=== PATIENT | male | born 1980 | race Caucasian/White ===

== ENCOUNTER 2017-02-03 12:51 | Inpatient (IN) | payer OTHER, MEDICAID ==
[2017-02-03 14:40] LABS: Hematocrit 48 % (42-52); Mean Corpuscular HGB Conc 33 g/dl (31-36); Mean Corpuscular Hemoglobin 31 pg (27-31); Mean Corpuscular Volume 93 fL (80-94); Mean Platelet Volume 9 um3 (7.4-10.4); Red Blood Count 5.23 10^6/ul (4.0-5.4); Red Cell Distribution Width 13 % (10.5-15)
[2017-02-03] MEDS ORDERED: Haloperidol INJ IV/IM* 5 MG/ML AMP IM ONE (15:06)
[2017-02-03] MEDS ORDERED: LORazepam INJ* 2 MG/ML 1 ML VIAL IM ONE (15:07)
[2017-02-03 15:09] LABS: TSH (Thyroid Stimulating Horm) 0.46 mcIU/mL (0.34-5.60)
[2017-02-03 15:10] LABS: Urine Bacteria Absent (Absent); Urine Bilirubin Negative (Negative); Urine Glucose Negative (Negative); Urine Nitrite Negative (Negative)
[2017-02-03 15:23] LABS: ALT 17 U/L (7-52); AST 16 U/L (13-39); Albumin 4.2 g/dL (3.2-5.2); Alkaline Phosphatase 85 U/L (34-104); Anion Gap 9 mmol/L (2-11); BUN/Creatinine Ratio 10.6 (8-20); Blood Urea Nitrogen 12 mg/dL (6-24); CO2 Carbon Dioxide 24 mmol/L (22-32); Calcium 9.3 mg/dL (8.6-10.3); Chloride 102 mmol/L (101-111); Creatine Kinase 166 U/L (10-223); EGFR African American 95.5 (>60); EGFR Non-African American 74.3 (>60); Globulin 2.8 g/dL (2-4); Glucose 167 mg/dL (70-100); Potassium 4.1 mmol/L (3.5-5.0); Sodium 135 mmol/L (133-145)
[2017-02-03] MEDS ORDERED: LORazepam TAB(*) 1 MG PO ONE (15:24)
[2017-02-03] MEDS ORDERED: Haloperidol TAB* 5 MG PO ONE (15:24)
[2017-02-03] MEDS ORDERED: diPHENhydraMINE PO* 50 MG PO ONE (15:24)
[2017-02-03 15:30] LABS: Acetaminophen < 15 mcg/mL; Alcohol < 10 mg/dL (<10); Salicylate < 2.50 mg/dL (<30)
[2017-02-03 15:55] LABS: Benzodiazepine Urine Screen None Detected (None Detect)
[2017-02-03] MEDS ORDERED: traZODone TAB* 50 MG TAB PO PRN (19:18)
--- NOTE | 2017-02-03 20:02 | ED ---
Leda Frederick Matthew, scribed for Bridger Gonzalez MD on 02/03/17 at 1402 . Altered Mental Status - HPI Summary HPI Summary: A 36 y/o male presents to the ED with altered mental status. The patient was over at [facility] and arrived there on the , when he told people that he was going to committee suicide and hurt himself. However, he does not have a plan. He states that he hasn't had these thoughts before and since arriving at the hospital his mental state has improved. Currently, the patient's having difficulty sleeping. He denies hearing voices and doesn't believe people are out to get him. The patient went to [facility] on his own. He was also at the [facility] for 3 weeks. Last known drug use was in November. The patient used multiple drugs. - History Of Current Complaint Chief Complaint: EDMentalHealth Stated Complaint: MENTAL HEALTH Hx Obtained From: Patient Onset/Duration: Still Present Timing: Constant Severity Initially: Moderate Severity Currently: Mild Aggravating Factor(s): Unknown Alleviating Factor(s): Unknown Associated Signs And Symptoms: Positive: Negative Has Suicidal: Thoughts - Allergies/Home Medications Allergies/Adverse Reactions: Allergies Allergy/AdvReac Type Severity Reaction Status Date / Time No Known Allergies Allergy Verified 02/03/17 12:55 Home Medications: Home Medications Amlodipine Besylate 10 mg PO BEDTIME 02/03/17 [History Confirmed 02/03/17] Gabapentin 300 mg PO TID 02/03/17 [History Confirmed 02/03/17] Lisinopril 20 mg PO DAILY 02/03/17 [History Confirmed 02/03/17] Omeprazole 20 mg PO BID 02/03/17 [History Confirmed 02/03/17] Rivaroxaban 20 mg PO DAILY 02/03/17 [History Confirmed 02/03/17] Thiamine 100 mg PO DAILY 02/03/17 [History Confirmed 02/03/17] Trazodone HCl 150 mg PO BEDTIME PRN 02/03/17 [History Confirmed 02/03/17] Zoloft 100 mg PO DAILY 02/03/17 [History Confirmed 02/03/17] PMH/Surg Hx/FS Hx/Imm Hx Psychiatric History: Reports: Hx Depression, Hx Substance Abuse Infectious Disease History: No Infectious Disease History: Denies: Traveled Outside the [place] in Last 30 Days - Family History Known Family History: Positive: Hypertension - Father - Social History Alcohol Use: He used to drink, but states that he isn't current Hx Substance Use: Yes Hx Tobacco Use: Yes Smoking Status (MU): Current Every Day Smoker Review of Systems Constitutional: Negative Eyes: Negative ENT: Negative Cardiovascular: Negative Respiratory: Negative Gastrointestinal: Negative Genitourinary: Negative Musculoskeletal: Negative Skin: Negative Neurological: Negative Psychological: Other - SI All Other Systems Reviewed And Are Negative: Yes Physical Exam - Summary Physical Exam Summary: The patient is well-nourished in no acute distress and in no acute pain. The skin is warm and dry and skin color reflects adequate perfusion. HEENT: The head is normocephalic and atraumatic. The pupils are equal and reactive. The conjunctivae are clear and without drainage. Nares are patent and without drainage. Mouth reveals moist mucous membranes and the throat is without erythema and exudate. The external ears are intact. Neck is supple with full range of motion and non-tender. There are no carotid bruits. There is no neck vein distension. Respiratory: Chest is non-tender. Lungs are clear to auscultation and breath sounds are symmetrical and equal. Cardiovascular: Heart is regular rate and rhythm. There is no murmur or rub auscultated. There is no peripheral edema and pulses are symmetrical and equal. Abdomen: The abdomen is soft and non-tender. There are normal bowel sounds heard in all four quadrants and there is no organomegaly palpated. Musculoskeletal: There is no back pain noted. Extremities are non-tender with full range of motion. There is good capillary refill. There is no peripheral edema or calf tenderness elicited. Neurological: Patient is alert and oriented to person, place and time. The patient has symmetrical motor strength in all four extremities. Cranial nerves are grossly intact. Deep tendon reflexes are symmetrical and equal in all four extremities. Psychiatric: The patient has difficulty following command.s Triage Information Reviewed: Yes Vital Signs On Initial Exam: Initial Vitals Temp Pulse Resp BP Pulse Ox 98.4 F 122 18 157/88 96 02/03/17 12:55 02/03/17 12:55 02/03/17 12:55 02/03/17 12:55 02/03/17 12:55 Vital Signs Reviewed: Yes Diagnostics - Vital Signs Vital Signs Temp Pulse Resp BP Pulse Ox 02/03/17 12:55 98.4 F 122 18 157/88 96 - Laboratory Lab Results: Lab Results 02/03/17 02/03/17 02/03/17 Range/Units 14:25 14:25 14:25 WBC 19.0 H (3.5-10.8) 10^3/ul RBC 5.23 (4.0-5.4) 10^6/ul Hgb 16.0 (14.0-18.0) g/dl Hct 48 (42-52) % MCV 93 (80-94) fL MCH 31 (27-31) pg MCHC 33 (31-36) g/dl RDW 13 (10.5-15) % Plt Count 290 (150-450) 10^3/ul MPV 9 (7.4-10.4) um3 Neut % (Auto) 84.9 H (38-83) % Lymph % (Auto) 7.8 L (25-47) % [place] % (Auto) 6.8 (1-9) % Eos % (Auto) 0 (0-6) % Baso % (Auto) 0.5 (0-2) % Absolute Neuts (auto) 16.1 H (1.5-7.7) 10^3/ul Absolute Lymphs (auto) 1.5 (1.0-4.8) 10^3/ul Absolute Monos (auto) 1.3 H (0-0.8) 10^3/ul Absolute Eos (auto) 0 (0-0.6) 10^3/ul Absolute Basos (auto) 0.1 (0-0.2) 10^3/ul Absolute Nucleated RBC 0.01 10^3/ul Nucleated RBC % 0.1 Sodium 135 (133-145) mmol/L Potassium 4.1 (3.5-5.0) mmol/L Chloride 102 (101-111) mmol/L Carbon Dioxide 24 (22-32) mmol/L Anion Gap 9 (2-11) mmol/L BUN 12 (6-24) mg/dL Creatinine 1.13 (0.67-1.17) mg/dL Est GFR ( Amer) 95.5 (>60) Est GFR (Non-Af Amer) 74.3 (>60) BUN/Creatinine Ratio 10.6 (8-20) Glucose 167 H (70-100) mg/dL Calcium 9.3 (8.6-10.3) mg/dL Total Bilirubin 0.50 (0.2-1.0) mg/dL AST 16 (13-39) U/L ALT 17 (7-52) U/L Alkaline Phosphatase 85 (34-104) U/L Total Creatine Kinase 166 (10-223) U/L Total Protein 7.0 (6.4-8.9) g/dL Albumin 4.2 (3.2-5.2) g/dL Globulin 2.8 (2-4) g/dL Albumin/Globulin Ratio 1.5 (1-3) TSH 0.46 (0.34-5.60) mcIU/mL Urine Color Yellow Urine Appearance Clear Urine pH 5.0 (5-9) Ur Specific [place] 1.018 (1.010-1.030) Urine Protein 1+(30 mg/dl) H (Negative) Urine Ketones Negative (Negative) Urine Blood Negative (Negative) Urine Nitrate Negative (Negative) Urine Bilirubin Negative (Negative) Urine Urobilinogen Negative (Negative) Ur Leukocyte Esterase Negative (Negative) Urine WBC (Auto) Trace(0-5/hpf) (Absent) Urine RBC (Auto) Trace(0-2/hpf) (Absent) Ur Squamous Epith Cells Present H (Absent) Urine Bacteria Absent (Absent) Urine Glucose Negative (Negative) Urine Ascorbic Acid * H (Negative) Salicylates < 2.50 (<30) mg/dL Urine Opiates Screen (None Detect) Acetaminophen < 15 mcg/mL Ur Barbiturates Screen (None Detect) Ur Phencyclidine Scrn (None Detect) Ur Amphetamines Screen (None Detect) U Benzodiazepines Scrn (None Detect) Urine Cocaine Screen (None Detect) U Cannabinoids Screen (None Detect) Serum Alcohol < 10 (<10) mg/dL 02/03/17 Range/Units 14:25 WBC (3.5-10.8) 10^3/ul RBC (4.0-5.4) 10^6/ul Hgb (14.0-18.0) g/dl Hct (42-52) % MCV (80-94) fL MCH (27-31) pg MCHC (31-36) g/dl RDW (10.5-15) % Plt Count (150-450) 10^3/ul MPV (7.4-10.4) um3 Neut % (Auto) (38-83) % Lymph % (Auto) (25-47) % [place] % (Auto) (1-9) % Eos % (Auto) (0-6) % Baso % (Auto) (0-2) % Absolute Neuts (auto) (1.5-7.7) 10^3/ul Absolute Lymphs (auto) (1.0-4.8) 10^3/ul Absolute Monos (auto) (0-0.8) 10^3/ul Absolute Eos (auto) (0-0.6) 10^3/ul Absolute Basos (auto) (0-0.2) 10^3/ul Absolute Nucleated RBC 10^3/ul Nucleated RBC % Sodium (133-145) mmol/L Potassium (3.5-5.0) mmol/L Chloride (101-111) mmol/L Carbon Dioxide (22-32) mmol/L Anion Gap (2-11) mmol/L BUN (6-24) mg/dL Creatinine (0.67-1.17) mg/dL Est GFR ( Amer) (>60) Est GFR (Non-Af Amer) (>60) BUN/Creatinine Ratio (8-20) Glucose (70-100) mg/dL Calcium (8.6-10.3) mg/dL Total Bilirubin (0.2-1.0) mg/dL AST (13-39) U/L ALT (7-52) U/L Alkaline Phosphatase (34-104) U/L Total Creatine Kinase (10-223) U/L Total Protein (6.4-8.9) g/dL Albumin (3.2-5.2) g/dL Globulin (2-4) g/dL Albumin/Globulin Ratio (1-3) TSH (0.34-5.60) mcIU/mL Urine Color Urine Appearance Urine pH (5-9) Ur Specific [place] (1.010-1.030) Urine Protein (Negative) Urine Ketones (Negative) Urine Blood (Negative) Urine Nitrate (Negative) Urine Bilirubin (Negative) Urine Urobilinogen (Negative) Ur Leukocyte Esterase (Negative) Urine WBC (Auto) (Absent) Urine RBC (Auto) (Absent) Ur Squamous Epith Cells (Absent) Urine Bacteria (Absent) Urine Glucose (Negative) Urine Ascorbic Acid (Negative) Salicylates (<30) mg/dL Urine Opiates Screen None detected (None Detect) Acetaminophen mcg/mL Ur Barbiturates Screen None detected (None Detect) Ur Phencyclidine Scrn None detected (None Detect) Ur Amphetamines Screen None detected (None Detect) U Benzodiazepines Scrn None detected (None Detect) Urine Cocaine Screen None detected (None Detect) U Cannabinoids Screen None detected (None Detect) Serum Alcohol (<10) mg/dL Result Diagrams: 02/03/17 14:25 02/03/17 14:25 Lab Statement: Any lab studies that have been ordered have been reviewed, and results considered in the medical decision making process. - EKG 14:11 Cardiac Rate: Tachycardia - 110 bpm EKG Rhythm: Sinus Tachycardia ST Segment: Non-Specific EKG Interpretation: Normal [place]; No STEMI Altered Mental Statu Course/Dx - Course Course Of Treatment: pt was recently transfered to [facility] from [facility] in [place], [place]. pt threatened to kill himself at [facility]. [facility] refused to accept pt back. there was suspicion of huffing or substance abuse. Assessment/Plan: The patient is being involuntary admitted to the MHU. - Diagnoses Differential Diagnosis/HQI/PQRI: Other - substance abuse, psychosis Discharge Diagnoses: Mood Disorder NOS - Provider Notifications Instructed by Provider To: Other - Cleared for MHE at 16:03 Discharge - Discharge Plan Condition: Stable Disposition: ADMITTED TO [facility] Referrals: Non Staff,Doctor [Primary Care Provider] - The documentation as recorded by the Leda barahona Matthew accurately reflects the service I personally performed and the decisions made by , Bridger Gonzalez MD.
[2017-02-03] MEDS: amLODIPine TAB* 5 MG PO SCH ×2 (21:32→22:18)
[2017-02-03] MEDS: Gabapentin CAP(*) 300 MG PO SCH (21:32)
[2017-02-03] MEDS: Omeprazole CAP* 20 MG PO SCH (22:50)
[2017-02-04] MEDS ORDERED: Mouth Piece, Nicotine* 1 EACH CARTRIDGE ONE (02:19)
[2017-02-04] MEDS: Nicotine Inhaler* 10 MG AMP INH PRN ×2 (02:19→20:16)
[2017-02-04] MEDS ORDERED: Sertraline* 100 MG TAB PO SCH (09:00)
[2017-02-04] MEDS ORDERED: Lisinopril TAB* 10 MG PO SCH (09:00)
[2017-02-04] MEDS: Thiamine TAB* 100 MG TAB PO SCH (10:29)
[2017-02-04] MEDS: Omeprazole CAP* 20 MG PO SCH ×2 (10:29→20:15)
[2017-02-04] MEDS: Gabapentin CAP(*) 300 MG PO SCH (10:30)
[2017-02-04] MEDS: Nicotine PATCH 21 MG/24 HR* PATCH TRANSDERM SCH (13:46)
--- NOTE | 2017-02-04 15:26 | CONS ---
CONSULTATION REPORT: DATE OF CONSULT: 02/04/17 PRIMARY CARE PROVIDER: Unknown. ATTENDING PHYSICIAN WHILE IN THE HOSPITAL: Emelia Chou MD (report dictated by Stevenson Salomon NP). REQUESTING PHYSICIAN FOR CONSULT: Dr. Coker. REASON FOR MEDICAL CONSULTATION: 1. Evaluation of altered mental status. 2. Medical management of hypertension. HISTORY OF PRESENT ILLNESS: Mr. Snell a 36-year-old male patient, who was recently at [facility] for, the patient states that he has a history of polysubstance abuse. He was then transferred from [facility] to the [facility]. Yesterday at [facility] it was noted that he was acting bizarre. He was confused. He was acting suicidal. There was concern that maybe he had inhaled something or taking something unbeknownst to the staff and because he was making gestures of killing himself, he was sent to the ED for evaluation. He was evaluated in the ED. He was deemed medically stable and sent to the psychiatric unit here for psychiatric evaluation and stabilization. Today, it was noted that the patient appeared to be drowsy, lethargic and the hospitalist service was asked to evaluate in consult. In evaluating the patient, he is drowsy, but does awaken to his name. He answers questions and he is falling asleep at times during my interview, but he states he has not had any headaches. There has been no recent fever or chills. He denies having any chest pain. He denies having any shortness of breath. He denies having any nausea, vomiting or any diarrhea. He states he has not had any headaches or any neck pain, and when asked if he takes Xarelto, a blood thinner or any medications for blood pressure such as Norvasc and lisinopril, to his knowledge he does not take those medications. The patient states that he has not again had any recent URI symptoms and he denies any abdominal discomfort, but because of the drowsiness, the hospitalist service was asked to evaluate in consult. PAST MEDICAL HISTORY: Significant for; 1. Polysubstance abuse. 2. Depression. 3. Hypertension. PAST SURGICAL HISTORY: Denied. HOME MEDICATIONS: There was a list that was obtained yesterday in the ED, which did include: 1. Xarelto. 2. Amlodipine. 3. Zoloft. 4. Thiamine. 5. Folic acid. 6. Norvasc. 7. Lisinopril. However, confirming these medications with the [facility] Unit, the list that I got from [facility] was: 1. Clonidine 0.1 mg p.o. b.i.d. 2. Antabuse 500 mg daily. 3. Lexapro 20 mg at bedtime. 4. Folic acid 1 tablet p.o. daily. 5. Tenex 2 mg daily at noon. 6. Nicotine patch 1 patch daily. 7. Simvastatin 10 mg at bedtime. 8. Thiamine 1 tablet p.o. b.i.d. This was confirmed with the [facility] discharge list as well. ALLERGIES: His allergies to medications include no known drug allergies. FAMILY HISTORY: Reviewed and essentially noncontributory. SOCIAL HISTORY: He does smoke cigarettes. He does drink alcohol at times and he has a history of cocaine and heroin use, he states that he has not used since October. He does not have a surrogate decision maker. REVIEW OF SYSTEMS: There is no documented fever. He denied having any significant weight change. There was no double vision. He denies having any ear discharge. There was no rhinorrhea, no sore throat, no thyroid enlargement. He denied having any chest pain. There was no orthopnea. There was no nocturnal dyspnea. He denies having any abdominal discomfort. There was no nausea, no vomiting. There was no dysuria, no frequency. He denied having any loss of consciousness. No pruritus. No skin ulcerations. Review of 14 systems completed, all others negative. PHYSICAL EXAM: Reveals vital signs of blood pressure 92/58 with a pulse of 110 , respirations 16, O2 sat 97%, and temperature 98.9. General: At this time, Mr. Snell is a 36-year-old male patient. He is sitting in the psychiatric bed. He does not appear to be in any acute distress. HEENT: Head is atraumatic and normocephalic. Eyes: EOMs are intact. Sclerae are anicteric and not pale. Neck: Supple. Throat: Oral mucosa appears to be moist. No oropharyngeal erythema. Heart: Sounds S1, S2. Regular rate and rhythm. No murmurs, rubs or gallops. Lungs: Clear to auscultation. No wheezes, rales or rhonchi. Abdomen: Soft, flat, nontender. Bowel sounds are present. Extremities: Pulses are 2+ throughout. He is able to move all 4 extremities with 5/5 strength. Neurologically, he is awake. He is drowsy, but he answers questions appropriately. He knows the place, time, and year, and he knows his name. His tongue is midline. His maintenance analyst were equal. His speech was clear. He had no gross obvious focal deficits. His skin was intact. DIAGNOSTIC STUDIES/LAB DATA: Labs from yesterday reveal WBC of 19.0, RBC of 5.23, hemoglobin of 16.0, hematocrit of 48, platelet count 290. The sodium was 135, potassium 4.1, chloride 102, bicarb of 24, BUN 12, creatinine 1.13, glucose 167, total bili 0.5, AST 16, ALT 17, alk phos 85, albumin was 4.2. Urine was obtained, it was negative. Toxicology obtained and negative. Old medical records were reviewed. ASSESSMENT AND PLAN: Mr. Snell a 36-year-old male patient, coming into the psychiatric unit for suicidal ideation. Hospitalist service was asked to evaluate for management of blood pressure, in addition to this a management of altered mental status. My recommendations at this point are; 1. Suicidal ideation and depression: I will defer the management to Dr. Coker. I did stop the Zoloft he was on and I put him back on the Lexapro that he normally takes. 2. Hypertension: He is actually running on the low side here and the patient denies having a history of hypertension. I am going to hold the antihypertensives for now and we will monitor him and we can reinstate them if needed and if his blood pressure is running greater than 90s. The patient states that he always has a low blood pressure, so we will monitor. 3. Altered mental status: I suspect that this is probably from the fact that he got 50 of Benadryl, Haldol, and Ativan in the ED last night. In addition to this, he also got trazodone last night and gabapentin, which was on the original home med list, but when I called [facility], he has not been taking this medication, this medication could certainly cause him to be altered and drowsy particularly this morning, so I think we just need to let things clear and we will monitor him. I will repeat his labs and follow. 4. Leukocytosis: Again, this may be a leukemoid reaction or stress responses, but no obvious source of infection on exam or in talking with the patient. I will repeat his labs today. We will send off cultures. His urine was negative and we will just continue to monitor. Should he spike a fever, then we will check. 5. Tachycardia: Again, heart rate is right around 78 currently. We will just continue to monitor him. 6. DVT prophylaxis: Defer to primary. 7. Fluids, electrolytes, and nutrition: He can have a regular diet. 8. Code status: He is full code. TIME SPENT: Time spent on the consult, 60 minutes; greater than half the time was spent [id number] with the patient obtaining my history and physical, other half the time spent going over the plan of care with the patient and implementing plan of care. I did discuss the plan of care with my attending, Dr. Chou; she is in agreement. STEVENSON SALOMON NP CC: Dr. Coker [id number]/CPS #: [id number] MTDD
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
[2017-02-04] MEDS ORDERED: Rivaroxaban TAB(*) 20 MG TAB PO SCH (17:00)
[2017-02-04] MEDS: Atorvastatin* 10 MG TAB PO SCH (18:41)
[2017-02-04] MEDS: Citalopram TAB* 40 MG PO SCH (20:16)
[2017-02-04] MEDS: Nicotine Patch Removal NOTE FOLLOW UP SCH (20:27)
[2017-02-04 21:51] LABS: Hematocrit 46 % (42-52); Hemoglobin 15.3 g/dl (14.0-18.0); Mean Corpuscular HGB Conc 33 g/dl (31-36); Mean Corpuscular Hemoglobin 31 pg (27-31); Mean Corpuscular Volume 93 fL (80-94); Mean Platelet Volume 9 um3 (7.4-10.4); Red Blood Count 4.96 10^6/ul (4.0-5.4); Red Cell Distribution Width 14 % (10.5-15); White Blood Count 17.5 10^3/ul (3.5-10.8)
[2017-02-04 21:52] LABS: Comments Flag Yes
[2017-02-04 22:04] LABS: BUN/Creatinine Ratio 16.8 (8-20); Calcium 9.2 mg/dL (8.6-10.3); Potassium 4.8 mmol/L (3.5-5.0)
[2017-02-05] MEDS ORDERED: Thiamine TAB* 100 MG TAB PO SCH (09:00)
[2017-02-05] MEDS: Thiamine TAB* 100 MG TAB PO SCH (09:59)
[2017-02-05] MEDS: Omeprazole CAP* 20 MG PO SCH ×2 (09:59→21:27)
[2017-02-05] MEDS: Disulfiram TAB* 250 MG PO SCH (10:00)
[2017-02-05] MEDS: Nicotine PATCH 21 MG/24 HR* PATCH TRANSDERM SCH (10:00)
[2017-02-05] MEDS: Folic Acid TAB* 1 MG PO SCH (10:00)
--- NOTE | 2017-02-05 13:30 | PN ---
Subjective Date of Service: 02/05/17 Interval History: Pt examined today at the bedside. States that he is feeling better. States he slept well last night. Denies chest pain. Denies sob. Denies lightheadedness. ROS-Denies fever, denies chills, denies chest pain, denies sob, denies lightheadedness, denies loc, denies abdominal pain, denies nausea, denies vomiting, review of 11 systems completed all others negative, Objective Active Medications: Atorvastatin Calcium (Lipitor*) 5 mg PO 1700 [facility] Last Admin: 02/04/17 18:41 Dose: 5 mg Citalopram Hydrobromide (Celexa Tab*) 40 mg PO BEDTIME [facility] Last Admin: 02/04/17 20:16 Dose: 40 mg Disulfiram (Antabuse Tab*) 500 mg PO DAILY [facility] Last Admin: 02/05/17 10:00 Dose: 500 mg Folic Acid (Folvite Tab*) 1 mg PO DAILY [facility] Last Admin: 02/05/17 10:00 Dose: 1 mg Nicotine (Nicotine Inhaler*) 10 mg INH Q2H PRN PRN Reason: CRAVING Last Admin: 02/04/17 20:16 Dose: 10 mg Nicotine (Nicotine Patch 21 Mg/24 Hr*) 1 patch TRANSDERM DAILY@0800 [facility] Last Admin: 02/05/17 10:00 Dose: 1 patch Omeprazole (Prilosec Cap*) 20 mg PO BID [facility] Last Admin: 02/05/17 09:59 Dose: 20 mg Pharmacy Profile Note (Nicotine Patch Removal Note*) 1 note FOLLOW UP 2099 [facility] Last Admin: 02/04/17 20:27 Dose: Not Given Thiamine HCl (Vitamin B-1 Tab*) 100 mg PO DAILY [facility] Last Admin: 02/05/17 09:59 Dose: 100 mg Vital Signs 02/04/17 02/04/17 02/04/17 13:27 16:53 21:17 Temperature Pulse Rate 90 83 85 Respiratory 16 18 18 Rate Blood Pressure 88/61 83/64 92/68 (mmHg) O2 Sat by Pulse 99 Oximetry 02/05/17 08:01 Temperature 98.6 F Pulse Rate 68 Respiratory 16 Rate Blood Pressure 113/58 (mmHg) O2 Sat by Pulse 97 Oximetry Oxygen Devices in Use Now: None Appearance: NAD sitting on edge of bed Eyes: No Scleral Icterus, PERRLA Ears/Nose/Mouth/Throat: NL Teeth, Lips, Gums Neck: NL Appearance and Movements; NL JVP Respiratory: Symmetrical Chest Expansion and Respiratory Effort, Clear to Auscultation Cardiovascular: NL Sounds; No Murmurs; No JVD Skin: No Rash or Ulcers Neurological: Alert and Oriented x 3 Result Diagrams: 02/04/17 21:35 02/04/17 21:36 Additional Lab and Data: Lab Results 02/03/17 02/03/17 02/03/17 Range/Units 14:25 14:25 14:25 WBC 19.0 H (3.5-10.8) 10^3/ul RBC 5.23 (4.0-5.4) 10^6/ul Hgb 16.0 (14.0-18.0) g/dl Hct 48 (42-52) % MCV 93 (80-94) fL MCH 31 (27-31) pg MCHC 33 (31-36) g/dl RDW 13 (10.5-15) % Plt Count 290 (150-450) 10^3/ul MPV 9 (7.4-10.4) um3 Neut % (Auto) 84.9 H (38-83) % Lymph % (Auto) 7.8 L (25-47) % Upton % (Auto) 6.8 (1-9) % Eos % (Auto) 0 (0-6) % Baso % (Auto) 0.5 (0-2) % Absolute Neuts (auto) 16.1 H (1.5-7.7) 10^3/ul Absolute Lymphs (auto) 1.5 (1.0-4.8) 10^3/ul Absolute Monos (auto) 1.3 H (0-0.8) 10^3/ul Absolute Eos (auto) 0 (0-0.6) 10^3/ul Absolute Basos (auto) 0.1 (0-0.2) 10^3/ul Absolute Nucleated RBC 0.01 10^3/ul Nucleated RBC % 0.1 Sodium 135 (133-145) mmol/L Potassium 4.1 (3.5-5.0) mmol/L Chloride 102 (101-111) mmol/L Carbon Dioxide 24 (22-32) mmol/L Anion Gap 9 (2-11) mmol/L BUN 12 (6-24) mg/dL Creatinine 1.13 (0.67-1.17) mg/dL Est GFR ( Amer) 95.5 (>60) Est GFR (Non-Af Amer) 74.3 (>60) BUN/Creatinine Ratio 10.6 (8-20) Glucose 167 H (70-100) mg/dL Calcium 9.3 (8.6-10.3) mg/dL Total Bilirubin 0.50 (0.2-1.0) mg/dL AST 16 (13-39) U/L ALT 17 (7-52) U/L Alkaline Phosphatase 85 (34-104) U/L Total Creatine Kinase 166 (10-223) U/L Total Protein 7.0 (6.4-8.9) g/dL Albumin 4.2 (3.2-5.2) g/dL Globulin 2.8 (2-4) g/dL Albumin/Globulin Ratio 1.5 (1-3) TSH 0.46 (0.34-5.60) mcIU/mL Urine Color Yellow Urine Appearance Clear Urine pH 5.0 (5-9) Ur Specific Sherrill 1.018 (1.010-1.030) Urine Protein 1+(30 mg/dl) H (Negative) Urine Ketones Negative (Negative) Urine Blood Negative (Negative) Urine Nitrate Negative (Negative) Urine Bilirubin Negative (Negative) Urine Urobilinogen Negative (Negative) Ur Leukocyte Esterase Negative (Negative) Urine WBC (Auto) Trace(0-5/hpf) (Absent) Urine RBC (Auto) Trace(0-2/hpf) (Absent) Ur Squamous Epith Cells Present H (Absent) Urine Bacteria Absent (Absent) Urine Glucose Negative (Negative) Urine Ascorbic Acid * H (Negative) Salicylates < 2.50 (<30) mg/dL Urine Opiates Screen (None Detect) Acetaminophen < 15 mcg/mL Ur Barbiturates Screen (None Detect) Ur Phencyclidine Scrn (None Detect) Ur Amphetamines Screen (None Detect) U Benzodiazepines Scrn (None Detect) Urine Cocaine Screen (None Detect) U Cannabinoids Screen (None Detect) Serum Alcohol < 10 (<10) mg/dL 02/03/17 Range/Units 14:25 WBC (3.5-10.8) 10^3/ul RBC (4.0-5.4) 10^6/ul Hgb (14.0-18.0) g/dl Hct (42-52) % MCV (80-94) fL MCH (27-31) pg MCHC (31-36) g/dl RDW (10.5-15) % Plt Count (150-450) 10^3/ul MPV (7.4-10.4) um3 Neut % (Auto) (38-83) % Lymph % (Auto) (25-47) % Upton % (Auto) (1-9) % Eos % (Auto) (0-6) % Baso % (Auto) (0-2) % Absolute Neuts (auto) (1.5-7.7) 10^3/ul Absolute Lymphs (auto) (1.0-4.8) 10^3/ul Absolute Monos (auto) (0-0.8) 10^3/ul Absolute Eos (auto) (0-0.6) 10^3/ul Absolute Basos (auto) (0-0.2) 10^3/ul Absolute Nucleated RBC 10^3/ul Nucleated RBC % Sodium (133-145) mmol/L Potassium (3.5-5.0) mmol/L Chloride (101-111) mmol/L Carbon Dioxide (22-32) mmol/L Anion Gap (2-11) mmol/L BUN (6-24) mg/dL Creatinine (0.67-1.17) mg/dL Est GFR ( Amer) (>60) Est GFR (Non-Af Amer) (>60) BUN/Creatinine Ratio (8-20) Glucose (70-100) mg/dL Calcium (8.6-10.3) mg/dL Total Bilirubin (0.2-1.0) mg/dL AST (13-39) U/L ALT (7-52) U/L Alkaline Phosphatase (34-104) U/L Total Creatine Kinase (10-223) U/L Total Protein (6.4-8.9) g/dL Albumin (3.2-5.2) g/dL Globulin (2-4) g/dL Albumin/Globulin Ratio (1-3) TSH (0.34-5.60) mcIU/mL Urine Color Urine Appearance Urine pH (5-9) Ur Specific Sherrill (1.010-1.030) Urine Protein (Negative) Urine Ketones (Negative) Urine Blood (Negative) Urine Nitrate (Negative) Urine Bilirubin (Negative) Urine Urobilinogen (Negative) Ur Leukocyte Esterase (Negative) Urine WBC (Auto) (Absent) Urine RBC (Auto) (Absent) Ur Squamous Epith Cells (Absent) Urine Bacteria (Absent) Urine Glucose (Negative) Urine Ascorbic Acid (Negative) Salicylates (<30) mg/dL Urine Opiates Screen None detected (None Detect) Acetaminophen mcg/mL Ur Barbiturates Screen None detected (None Detect) Ur Phencyclidine Scrn None detected (None Detect) Ur Amphetamines Screen None detected (None Detect) U Benzodiazepines Scrn None detected (None Detect) Urine Cocaine Screen None detected (None Detect) U Cannabinoids Screen None detected (None Detect) Serum Alcohol (<10) mg/dL Assess/Plan/Problems-Billing Assessment: 36 y/o male patient with hx of polysubstance abuse presenting to [facility] for SI - Patient Problems (1) Altered mental status Current Visit: Yes Status: Acute Priority: High Comment: Suspect r/t poly pharmacy and trazadone, pt much more awake and later today, (2) Suicidal ideation Current Visit: Yes Status: Acute Priority: High Comment: Per psych (3) Depression Current Visit: Yes Status: Acute Priority: High Comment: Per psych (4) HTN (hypertension) Current Visit: Yes Status: Acute Priority: High Comment: Pt states he normal has low BP, pt was given norvasc yesterday supsect low bp r/t to this, no hx of htn per patient, will follow bp acceptable today Status and Disposition: Per psych medicine will sign off at this point as patient's mentation has improved and bp stabilized, call [phone] for further concerns thank you for the consult
[2017-02-05] MEDS: Atorvastatin* 10 MG TAB PO SCH (16:28)
[2017-02-05] MEDS: Citalopram TAB* 40 MG PO SCH (21:27)
[2017-02-05] MEDS: Nicotine Patch Removal NOTE FOLLOW UP SCH (21:27)
[2017-02-05] MEDS ORDERED: chlorproMAZINE TAB* 50 MG ONE (23:03)
[2017-02-05] MEDS ORDERED: diPHENhydraMINE PO* 50 MG ONE (23:03)
[2017-02-06] MEDS: Nicotine Inhaler* 10 MG AMP INH PRN ×2 (02:38→09:34)
[2017-02-06] MEDS: Nicotine PATCH 21 MG/24 HR* PATCH TRANSDERM SCH (09:33)
[2017-02-06] MEDS: Folic Acid TAB* 1 MG PO SCH (09:35)
[2017-02-06] MEDS: Disulfiram TAB* 250 MG PO SCH (09:35)
[2017-02-06] MEDS: Omeprazole CAP* 20 MG PO SCH ×2 (09:35→20:46)
[2017-02-06] MEDS: Thiamine TAB* 100 MG TAB PO SCH (09:35)
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
[2017-02-06] MEDS ORDERED: risperiDONE TAB* 1 MG PO ONE (14:10)
[2017-02-06] MEDS: Atorvastatin* 10 MG TAB PO SCH (17:08)
[2017-02-06] MEDS: Nicotine Patch Removal NOTE FOLLOW UP SCH (20:46)
[2017-02-06] MEDS: risperiDONE TAB* 1 MG PO SCH (20:46)
[2017-02-06] MEDS: Citalopram TAB* 40 MG PO SCH (20:46)
[2017-02-07] MEDS: Thiamine TAB* 100 MG TAB PO SCH (10:07)
[2017-02-07] MEDS: Disulfiram TAB* 250 MG PO SCH (10:07)
[2017-02-07] MEDS: Omeprazole CAP* 20 MG PO SCH ×2 (10:08→21:38)
[2017-02-07] MEDS: Folic Acid TAB* 1 MG PO SCH (10:08)
[2017-02-07] MEDS: Nicotine PATCH 21 MG/24 HR* PATCH TRANSDERM SCH (10:08)
[2017-02-07] MEDS: risperiDONE TAB* 1 MG PO SCH (10:08)
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
--- NOTE | 2017-02-07 11:22 | PN ---
MHU: Group Therapy Note - Service Type Service Type: [id number] Group Psychotherapy - Cognitive Behavioral Group Therapy ( CBT):Patient presented in CBT programming as disorganized and disruptive in discussion and needed repeated redirection to attend to presented materials.
[2017-02-07] MEDS: Nicotine Inhaler* 10 MG AMP INH PRN (15:36)
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
[2017-02-07] MEDS: Atorvastatin* 10 MG TAB PO SCH (17:43)
[2017-02-07] MEDS: Citalopram TAB* 40 MG PO SCH (21:38)
[2017-02-07] MEDS: risperiDONE TAB* 3 MG PO SCH (21:38)
[2017-02-07] MEDS: Nicotine Patch Removal NOTE FOLLOW UP SCH (21:39)
[2017-02-08] MEDS: Nicotine PATCH 21 MG/24 HR* PATCH TRANSDERM SCH (08:42)
[2017-02-08] MEDS: Omeprazole CAP* 20 MG PO SCH ×2 (08:43→20:22)
[2017-02-08] MEDS: Disulfiram TAB* 250 MG PO SCH (08:43)
[2017-02-08] MEDS: Thiamine TAB* 100 MG TAB PO SCH (08:43)
[2017-02-08] MEDS: Folic Acid TAB* 1 MG PO SCH (08:43)
[2017-02-08] MEDS: Nicotine Inhaler* 10 MG AMP INH PRN ×4 (08:46→23:24)
--- NOTE | 2017-02-08 11:58 | PN ---
MHU: Group Therapy Note - Service Type Service Type: [id number] Group Psychotherapy - Cognitive Behavioral Group Therapy ( CBT):Patient was attentive and participatory in CBT programming this morning, and remained in good behavioral control. Patient expressed positive insights regarding relevant treatment interventions and goals.
--- NOTE | 2017-02-08 14:57 | PN ---
Subjective - Subjective Service Type: [id number] Hosp care 15 min low complexity Subjective: Brian continues to present with a somewhat odd and slightly disjointed thought process. He denies any dangerous intent or plan. He denies any hallucinations. He has no recall of why he was prescribed Xarelto, nor from where he last got the med. He says he gets his prescriptions from whereever he is at the time, and cannot recall clearly where he has been. He says he should not have said he was suicidal. He says he feels embarassed at what he was doing at [facility], walking into patricio, taking off his shirt and beating his chest. He is unable to explain why he did these things. He says his main issue is depression, not psychosis. Objective - Appearance Appearance: Well Developed/Nourished Dysmorphic Features: No Hygiene: Normal Grooming: Fairly Well Kept - Behavior Psychomotor Activities: Normal Exhibits Abnormal Movement: No - Attitude and Relatedness Attitude and Relatedness: Cooperative Eye Contact: Fair - Speech Quality: Unpressured Latencies: Normal Quantity: Copious - Mood Patient's Decription of Mood: "Good" - Affect Observed Affect: Fair Affect Consistent with: Euthymia - Thought Process Patient's Thought Process: Disorganized - mildly Thought Content: No Passive Wish, No Suicidal Planning, No Homicidal Ideation, No Paranoid Ideation - "Just anxious" - Impulse Control Impulse Control: Intact - Insight and Judgement Insight and Judgement: Impaired - Group Participation Particating in Group Activities: Yes - Medication Management Medication Management Adherence: Yes Assessment - Assessment Merits Inpatient Hospitalization: For Immediate Safety, For Stabilization, To Initiate Treatment, For Ongoing Evaluation, For Discharge Planning, Pending Safe DC Plan Inpatient DSM-IV Dx: Mood disorder, not otherwise specified. Psychotic disorder not otherwise specified. Alcohol, cocaine, and opioid use disorders. Rule out medication adverse effect. Rule out cognitive disorder NOS Clinical Impression: Brian is a 36 year-old man admitted to this unit following SI and odd behavior reported and observed at [facility]. He remains mildly disorganized here, but with some clearing of his thought process. He would like to return to [facility] for continued care for his substance use disorder. Plan - Plan Treatment Plan: Name: BRIAN HUBBARD Birthdate: 1980 [id number] Continue current meds. Gather collateral. Clarify indication for Xarelto. Monitor MS and safety. Medications: Current Medications Atorvastatin Calcium (Lipitor*) 5 mg PO 1700 [facility] Last Admin: 02/07/17 17:43 Dose: 5 mg Citalopram Hydrobromide (Celexa Tab*) 40 mg PO BEDTIME [facility] Last Admin: 02/07/17 21:38 Dose: 40 mg Disulfiram (Antabuse Tab*) 500 mg PO DAILY [facility] Last Admin: 02/08/17 08:43 Dose: 500 mg Folic Acid (Folvite Tab*) 1 mg PO DAILY [facility] Last Admin: 02/08/17 08:43 Dose: 1 mg Nicotine (Nicotine Inhaler*) 10 mg INH Q2H PRN PRN Reason: CRAVING Last Admin: 02/08/17 08:46 Dose: 10 mg Nicotine (Nicotine Patch 21 Mg/24 Hr*) 1 patch TRANSDERM DAILY@0800 [facility] Last Admin: 02/08/17 08:42 Dose: 1 patch Omeprazole (Prilosec Cap*) 20 mg PO BID [facility] Last Admin: 02/08/17 08:43 Dose: 20 mg Pharmacy Profile Note (Nicotine Patch Removal Note*) 1 note FOLLOW UP 2100 [facility] Last Admin: 02/07/17 21:39 Dose: 1 note Risperidone (Risperdal*) 3 mg PO BEDTIME [facility] Last Admin: 02/07/17 21:38 Dose: 3 mg Thiamine HCl (Vitamin B-1 Tab*) 100 mg PO DAILY [facility] Last Admin: 02/08/17 08:43 Dose: 100 mg - Discharge Plan Discharge Plan: Drug/Alcohol Rehab
[2017-02-08] MEDS: Atorvastatin* 10 MG TAB PO SCH (17:55)
[2017-02-08] MEDS: risperiDONE TAB* 3 MG PO SCH (20:21)
[2017-02-08] MEDS: Citalopram TAB* 40 MG PO SCH (20:22)
[2017-02-08] MEDS: Nicotine Patch Removal NOTE FOLLOW UP SCH (20:31)
[2017-02-09] MEDS: Nicotine PATCH 21 MG/24 HR* PATCH TRANSDERM SCH (09:04)
[2017-02-09] MEDS: Thiamine TAB* 100 MG TAB PO SCH (09:05)
[2017-02-09] MEDS: Omeprazole CAP* 20 MG PO SCH ×2 (09:05→20:14)
[2017-02-09] MEDS: Disulfiram TAB* 250 MG PO SCH (09:05)
[2017-02-09] MEDS: Folic Acid TAB* 1 MG PO SCH (09:06)
[2017-02-09] MEDS: Nicotine Inhaler* 10 MG AMP INH PRN ×3 (09:07→20:13)
--- NOTE | 2017-02-09 14:30 | PN ---
Subjective Date of Service: 02/09/17 Interval History: Consultation for c/o chest pain. Mr. Snell was seen in consultation for c/o chest pain. Per the patient, this morning he was distressed and had sudden onset of chest pain in the epigastric region of his chest. This happened "for a few minutes" and then he was concerned about his nicotine patch, as it is a larger dose than he is used to. He removed the patch and his chest pain went away. He denies any further issues. He denies diaphoresis, SOB, back pain, jaw pain, arm pain, shoulder, pain, nausea/vomiting. He is notably tachycardic, but he states that "my heart rate goes up sometimes." He is observed drinking coffee, which he states he "drinks a lot of." He also attributes his fast heart rate to his anxiety. We discussed decreasing his coffee intake in order to help lower his heart rate. Patient requested a 14 mg patch, which is what he previously used. EKG: Sinus tachycardia Family History: Unchanged from Admission Social History: Unchanged from Admission Past Medical History: Unchanged from Admission Objective Active Medications: Atorvastatin Calcium (Lipitor*) 5 mg PO 1700 [facility] Last Admin: 02/08/17 17:55 Dose: 5 mg Citalopram Hydrobromide (Celexa Tab*) 40 mg PO BEDTIME [facility] Last Admin: 02/08/17 20:22 Dose: 40 mg Disulfiram (Antabuse Tab*) 500 mg PO DAILY [facility] Last Admin: 02/09/17 09:05 Dose: 500 mg Folic Acid (Folvite Tab*) 1 mg PO DAILY [facility] Last Admin: 02/09/17 09:06 Dose: 1 mg Nicotine (Nicotine Inhaler*) 10 mg INH Q2H PRN PRN Reason: CRAVING Last Admin: 02/09/17 13:10 Dose: 10 mg Omeprazole (Prilosec Cap*) 20 mg PO BID [facility] Last Admin: 02/09/17 09:05 Dose: 20 mg Pharmacy Profile Note (Nicotine Patch Removal Note*) 1 note FOLLOW UP 2100 [facility] Last Admin: 02/08/17 20:31 Dose: 1 note Risperidone (Risperdal*) 3 mg PO BEDTIME [facility] Last Admin: 02/08/17 20:21 Dose: 3 mg Thiamine HCl (Vitamin B-1 Tab*) 100 mg PO DAILY [facility] Last Admin: 02/09/17 09:05 Dose: 100 mg Vital Signs 02/09/17 02/09/17 07:48 09:29 Pulse Rate 136 140 Blood Pressure 138/89 161/78 (mmHg) O2 Sat by Pulse 97 98 Oximetry Oxygen Devices in Use Now: None Appearance: Young male, ambulating in dining area, in NAD Eyes: PERRLA Ears/Nose/Mouth/Throat: Clear Oropharnyx, Mucous Membranes Moist Neck: NL Appearance and Movements; NL JVP Respiratory: Symmetrical Chest Expansion and Respiratory Effort, Clear to Auscultation Cardiovascular: NL Sounds; No Murmurs; No JVD, RRR - tachycardic, apical pulse 102 Abdominal: NL Sounds; No Tenderness; No Distention Extremities: No Edema Skin: No Rash or Ulcers Neurological: - - Alert, answers appropriately. Poor historian Nutrition: Taking PO's Result Diagrams: 02/04/17 21:35 02/04/17 21:36 Additional Lab and Data: Lab Results 02/03/17 02/03/17 02/03/17 Range/Units 14:25 14:25 14:25 WBC 19.0 H (3.5-10.8) 10^3/ul RBC 5.23 (4.0-5.4) 10^6/ul Hgb 16.0 (14.0-18.0) g/dl Hct 48 (42-52) % MCV 93 (80-94) fL MCH 31 (27-31) pg MCHC 33 (31-36) g/dl RDW 13 (10.5-15) % Plt Count 290 (150-450) 10^3/ul MPV 9 (7.4-10.4) um3 Neut % (Auto) 84.9 H (38-83) % Lymph % (Auto) 7.8 L (25-47) % [place] % (Auto) 6.8 (1-9) % Eos % (Auto) 0 (0-6) % Baso % (Auto) 0.5 (0-2) % Absolute Neuts (auto) 16.1 H (1.5-7.7) 10^3/ul Absolute Lymphs (auto) 1.5 (1.0-4.8) 10^3/ul Absolute Monos (auto) 1.3 H (0-0.8) 10^3/ul Absolute Eos (auto) 0 (0-0.6) 10^3/ul Absolute Basos (auto) 0.1 (0-0.2) 10^3/ul Absolute Nucleated RBC 0.01 10^3/ul Nucleated RBC % 0.1 Sodium 135 (133-145) mmol/L Potassium 4.1 (3.5-5.0) mmol/L Chloride 102 (101-111) mmol/L Carbon Dioxide 24 (22-32) mmol/L Anion Gap 9 (2-11) mmol/L BUN 12 (6-24) mg/dL Creatinine 1.13 (0.67-1.17) mg/dL Est GFR ( Amer) 95.5 (>60) Est GFR (Non-Af Amer) 74.3 (>60) BUN/Creatinine Ratio 10.6 (8-20) Glucose 167 H (70-100) mg/dL Calcium 9.3 (8.6-10.3) mg/dL Total Bilirubin 0.50 (0.2-1.0) mg/dL AST 16 (13-39) U/L ALT 17 (7-52) U/L Alkaline Phosphatase 85 (34-104) U/L Total Creatine Kinase 166 (10-223) U/L Total Protein 7.0 (6.4-8.9) g/dL Albumin 4.2 (3.2-5.2) g/dL Globulin 2.8 (2-4) g/dL Albumin/Globulin Ratio 1.5 (1-3) TSH 0.46 (0.34-5.60) mcIU/mL Urine Color Yellow Urine Appearance Clear Urine pH 5.0 (5-9) Ur Specific [place] 1.018 (1.010-1.030) Urine Protein 1+(30 mg/dl) H (Negative) Urine Ketones Negative (Negative) Urine Blood Negative (Negative) Urine Nitrate Negative (Negative) Urine Bilirubin Negative (Negative) Urine Urobilinogen Negative (Negative) Ur Leukocyte Esterase Negative (Negative) Urine WBC (Auto) Trace(0-5/hpf) (Absent) Urine RBC (Auto) Trace(0-2/hpf) (Absent) Ur Squamous Epith Cells Present H (Absent) Urine Bacteria Absent (Absent) Urine Glucose Negative (Negative) Urine Ascorbic Acid * H (Negative) Salicylates < 2.50 (<30) mg/dL Urine Opiates Screen (None Detect) Acetaminophen < 15 mcg/mL Ur Barbiturates Screen (None Detect) Ur Phencyclidine Scrn (None Detect) Ur Amphetamines Screen (None Detect) U Benzodiazepines Scrn (None Detect) Urine Cocaine Screen (None Detect) U Cannabinoids Screen (None Detect) Serum Alcohol < 10 (<10) mg/dL 02/03/17 Range/Units 14:25 WBC (3.5-10.8) 10^3/ul RBC (4.0-5.4) 10^6/ul Hgb (14.0-18.0) g/dl Hct (42-52) % MCV (80-94) fL MCH (27-31) pg MCHC (31-36) g/dl RDW (10.5-15) % Plt Count (150-450) 10^3/ul MPV (7.4-10.4) um3 Neut % (Auto) (38-83) % Lymph % (Auto) (25-47) % [place] % (Auto) (1-9) % Eos % (Auto) (0-6) % Baso % (Auto) (0-2) % Absolute Neuts (auto) (1.5-7.7) 10^3/ul Absolute Lymphs (auto) (1.0-4.8) 10^3/ul Absolute Monos (auto) (0-0.8) 10^3/ul Absolute Eos (auto) (0-0.6) 10^3/ul Absolute Basos (auto) (0-0.2) 10^3/ul Absolute Nucleated RBC 10^3/ul Nucleated RBC % Sodium (133-145) mmol/L Potassium (3.5-5.0) mmol/L Chloride (101-111) mmol/L Carbon Dioxide (22-32) mmol/L Anion Gap (2-11) mmol/L BUN (6-24) mg/dL Creatinine (0.67-1.17) mg/dL Est GFR ( Amer) (>60) Est GFR (Non-Af Amer) (>60) BUN/Creatinine Ratio (8-20) Glucose (70-100) mg/dL Calcium (8.6-10.3) mg/dL Total Bilirubin (0.2-1.0) mg/dL AST (13-39) U/L ALT (7-52) U/L Alkaline Phosphatase (34-104) U/L Total Creatine Kinase (10-223) U/L Total Protein (6.4-8.9) g/dL Albumin (3.2-5.2) g/dL Globulin (2-4) g/dL Albumin/Globulin Ratio (1-3) TSH (0.34-5.60) mcIU/mL Urine Color Urine Appearance Urine pH (5-9) Ur Specific [place] (1.010-1.030) Urine Protein (Negative) Urine Ketones (Negative) Urine Blood (Negative) Urine Nitrate (Negative) Urine Bilirubin (Negative) Urine Urobilinogen (Negative) Ur Leukocyte Esterase (Negative) Urine WBC (Auto) (Absent) Urine RBC (Auto) (Absent) Ur Squamous Epith Cells (Absent) Urine Bacteria (Absent) Urine Glucose (Negative) Urine Ascorbic Acid (Negative) Salicylates (<30) mg/dL Urine Opiates Screen None detected (None Detect) Acetaminophen mcg/mL Ur Barbiturates Screen None detected (None Detect) Ur Phencyclidine Scrn None detected (None Detect) Ur Amphetamines Screen None detected (None Detect) U Benzodiazepines Scrn None detected (None Detect) Urine Cocaine Screen None detected (None Detect) U Cannabinoids Screen None detected (None Detect) Serum Alcohol (<10) mg/dL Microbiology and Other Data: Microbiology 02/04/17 21:36 Aerobic Blood Culture - Preliminary Blood Venous No Growth Day 4 Anaerobic Blood Culture - Preliminary No Growth Day 4 Blood Culture - Final Assess/Plan/Problems-Billing Assessment: 36 y/o male patient with hx of polysubstance abuse presenting to [facility] for SI - Patient Problems (1) Chest pain Code(s): R07.9 - CHEST PAIN, UNSPECIFIED Comment: With short episode of epigastric chest pain, now denies having CP. EKG with no ischemic changes, first troponin negative Previously on small dose of clonidine, which has been stopped. ? if contributing to mild rebound tachycardia/HTN. Continue to trend troponins. (2) Suicidal ideation Code(s): R45.851 - SUICIDAL IDEATIONS Comment: Management per psychiatry. (3) Depression Code(s): F32.9 - MAJOR DEPRESSIVE DISORDER, SINGLE EPISODE, UNSPECIFIED Comment: Management per psychiatry. Continue citalopram. (4) HTN (hypertension) Code(s): I10 - ESSENTIAL (PRIMARY) HYPERTENSION Comment: BP trending up. Previously on clonidine, which has been discontinued here. Will discuss with psychiatry about restarting medication, as it may have been stopped secondary other treatment. Status and Disposition: Inpatient. Disposition per psychiatry. Will continue to follow to trend troponins.
--- NOTE | 2017-02-09 15:08 | PN ---
Subjective - Subjective Service Type: [id number] Hosp care 15 min low complexity Subjective: Brian complained of chest pain today. EKG was normal. Hospitalist reported on her exam he denied continued chest pain, though he remained tachycardic. She thought this might be due to discontinuation of clonidine. Brian still is unable to recall sufficient personal history to elucidate his psychiatric or medical history, so information remains limited to report from [facility]. MMPI was completed , with scoring indicative of hypomania. Recreational therapist Katie reports observing Brian bubbling in responses without reference to the questions, calling into question reliability of MMPI, though random responses are expected to be detected. Objective - Appearance Appearance: Healthy Appearing Dysmorphic Features: No Hygiene: Normal Grooming: Fairly Well Kept - Behavior Psychomotor Activities: Normal Exhibits Abnormal Movement: No - Attitude and Relatedness Attitude and Relatedness: Cooperative Eye Contact: Good - Speech Quality: Unpressured Latencies: Normal Quantity: Appropriate - Mood Patient's Decription of Mood: "Good" - Affect Observed Affect: Fair Affect Consistent with: Euthymia - Thought Process Patient's Thought Process: Coherent, Goal Directed, Disorganized - in so far as he is unable to give much history Thought Content: No Passive Wish, No Suicidal Planning, No Homicidal Ideation, No Paranoid Ideation - Sensorium Experiencing Hallucinations: No, Sensorium is Clear Type of Hallucinations: Visual: No, Auditory: No, Command: No - Level of Consciousness Level of Consciousness: Alert Orientation: Yes Intact, Yes Orientated to Time, Yes Orientated to Place, Yes Orientated to Person - Impulse Control Impulse Control: Tenuous - Insight and Judgement Insight and Judgement: Poor - Group Participation Particating in Group Activities: Yes - Medication Management Medication Management Adherence: Yes Assessment - Assessment Merits Inpatient Hospitalization: For Stabilization, Consolidate Improvements, For Discharge Planning Inpatient DSM-IV Dx: Mood disorder, not otherwise specified. Psychotic disorder not otherwise specified. Alcohol, cocaine, and opioid use disorders. Rule out medication adverse effect. Rule out cognitive disorder NOS Clinical Impression: Brian is a 36 year-old man admitted to this unit following SI and odd behavior reported and observed at [facility]. He remains mildly disorganized here, but with some clearing of his thought process. He would like to return to [facility] for continued care for his substance use disorder. 02.09.17: Return to [facility] is not an option for Brian. His history remains murky, with his inability to recall sufficient history to even guide gathering collateral report at this point. His behavior is non-threatening and even pleasant. His thoughts are organized only on the small scale of attendance to ADLs. He is pleasant and sociable. Main gains appear possible through increase of collateral report as it comes available with clearing of Brian's thought process. Plan - Plan Treatment Plan: Name: BRIAN HUBBARD Birthdate: 1980 [id number] Continue current meds. Gather collateral. Monitor MS and safety. Medications: Current Medications Atorvastatin Calcium (Lipitor*) 5 mg PO 1700 [facility] Last Admin: 02/08/17 17:55 Dose: 5 mg Citalopram Hydrobromide (Celexa Tab*) 40 mg PO BEDTIME [facility] Last Admin: 02/08/17 20:22 Dose: 40 mg Disulfiram (Antabuse Tab*) 500 mg PO DAILY [facility] Last Admin: 02/09/17 09:05 Dose: 500 mg Folic Acid (Folvite Tab*) 1 mg PO DAILY [facility] Last Admin: 02/09/17 09:06 Dose: 1 mg Nicotine (Nicotine Inhaler*) 10 mg INH Q2H PRN PRN Reason: CRAVING Last Admin: 02/09/17 13:10 Dose: 10 mg Nicotine (Nicotine Patch 14 Mg/24 Hr*) 1 patch TRANSDERM DAILY [facility] Omeprazole (Prilosec Cap*) 20 mg PO BID [facility] Last Admin: 02/09/17 09:05 Dose: 20 mg Pharmacy Profile Note (Nicotine Patch Removal Note*) 1 note FOLLOW UP 2100 [facility] Last Admin: 02/08/17 20:31 Dose: 1 note Risperidone (Risperdal*) 3 mg PO BEDTIME [facility] Last Admin: 02/08/17 20:21 Dose: 3 mg Thiamine HCl (Vitamin B-1 Tab*) 100 mg PO DAILY [facility] Last Admin: 02/09/17 09:05 Dose: 100 mg - Discharge Plan Discharge Plan: Outpatient Follow Up
[2017-02-09] MEDS: Atorvastatin* 10 MG TAB PO SCH (17:19)
[2017-02-09] MEDS: Nicotine PATCH 14 MG/24 HR* PATCH TRANSDERM SCH (17:24)
[2017-02-09] MEDS: risperiDONE TAB* 2 MG PO SCH (20:13)
[2017-02-09] MEDS: Citalopram TAB* 20 MG PO SCH (20:14)
[2017-02-10] MEDS: Folic Acid TAB* 1 MG PO SCH (09:56)
[2017-02-10] MEDS: Nicotine PATCH 14 MG/24 HR* PATCH TRANSDERM SCH (09:56)
[2017-02-10] MEDS: Omeprazole CAP* 20 MG PO SCH ×2 (09:56→20:21)
[2017-02-10] MEDS: Thiamine TAB* 100 MG TAB PO SCH (09:56)
[2017-02-10] MEDS: Disulfiram TAB* 250 MG PO SCH (09:56)
[2017-02-10] MEDS: Nicotine Inhaler* 10 MG AMP INH PRN ×4 (09:57→20:20)
--- NOTE | 2017-02-10 11:57 | PN ---
Subjective - Subjective Service Type: [id number] Hosp care 15 min low complexity Subjective: Brian reports "doing great" and notes feeling a lot better than at admission. He affirms he has no suicidal thoughts, and says he would "never" harm anyone else: "would harm myself first!!" He denies perceptual disturbances or side effects, and likes his regimen. He is hopeful to return to [facility]; but denies problems on the unit. Objective - Appearance Appearance: Well Developed/Nourished Hygiene: Normal Grooming: Well Kept - Behavior Psychomotor Activities: Normal - Attitude and Relatedness Attitude and Relatedness: Superficially Cooperative Eye Contact: Fair - Speech Quality: Unpressured Latencies: Normal Quantity: Appropriate - Mood Patient's Decription of Mood: "Great" - Affect Observed Affect: Non-labile Affect Consistent with: Euthymia - Thought Process Patient's Thought Process: Coherent, Impoverished Thought Content: No Passive Wish, No Suicidal Planning, No Homicidal Ideation, No Paranoid Ideation - Sensorium Experiencing Hallucinations: No, Sensorium is Clear - Level of Consciousness Level of Consciousness: Alert - Impulse Control Impulse Control: Intact - Insight and Judgement Insight and Judgement: Fair Assessment - Assessment Merits Inpatient Hospitalization: To Initiate Treatment, For Ongoing Evaluation , Consolidate Improvements, For Discharge Planning, Pending Safe DC Plan Inpatient DSM-IV Dx: Mood disorder, not otherwise specified. Psychotic disorder not otherwise specified. Rule out Bipolar disorder, Schizoaffective disorder. Alcohol, cocaine, and opioid use disorders. Rule out medication adverse effect Clinical Impression: 36-year-old male with reported history of violence and suicidal behavior, self- mutilating behavior, depressive condition, outpatient psychiatric treatment, psychiatric hospitalization, and incarceration along with significant substance use disorders. He was admitted due to concern over abnormal behavior at residential rehab facility with "walking into patricio" and apparent disinhibition , along with suicidal statements. Brian has stabilized here and is clinically improved. Both at [facility] and on our observation Brian appeared to have psychotic features: disorganized thought process, ambivlanece (negative symptoms?), oddness, responses to internal stimuli. These symptoms have improved. He is relatively more organized, appropriate, spontaneous. It is unclear how his current state relates to his baseline. He has been safe on checks, cooperative with routines, is participating in programming, and is consistently free of suicidal or violent ideation. Evaluation includes psychological testing with MMPI - he had an exaggerated profile that was not inconsistent with psychosis, testing also suggested possible hypomanic features and consideration for Bipolar disorder (see Dr. Marques's consultation). Hospitalist consultation was obtained and has evaluated hypertension, tachycardia, and chest pain (Case discussed with Roselia Talbot today). Medication management involves continuing Lexapro (Celexa given here) and disulfiram, and starting Risperdal for coverage psychotic and mood disorder features. Given progress, expect discharge in coming week. Plan - Plan Treatment Plan: Name: BRIAN HUBBARD Birthdate: 1980 [id number] Continued Medication Management: Start Medication Medications: Current Medications Atorvastatin Calcium (Lipitor*) 5 mg PO 1700 [facility] Last Admin: 02/09/17 17:19 Dose: 5 mg Citalopram Hydrobromide (Celexa Tab*) 20 mg PO BEDTIME [facility] Last Admin: 02/09/17 20:14 Dose: 20 mg Disulfiram (Antabuse Tab*) 500 mg PO DAILY [facility] Last Admin: 02/10/17 09:56 Dose: 500 mg Folic Acid (Folvite Tab*) 1 mg PO DAILY [facility] Last Admin: 02/10/17 09:56 Dose: 1 mg Nicotine (Nicotine Inhaler*) 10 mg INH Q2H PRN PRN Reason: CRAVING Last Admin: 02/10/17 09:57 Dose: 10 mg Nicotine (Nicotine Patch 14 Mg/24 Hr*) 1 patch TRANSDERM DAILY [facility] Last Admin: 02/10/17 09:56 Dose: 1 patch Omeprazole (Prilosec Cap*) 20 mg PO BID [facility] Last Admin: 02/10/17 09:56 Dose: 20 mg Pharmacy Profile Note (Nicotine Patch Removal Note*) 1 note FOLLOW UP 2100 [facility] Last Admin: 02/08/17 20:31 Dose: 1 note Risperidone (Risperdal*) 4 mg PO BEDTIME [facility] Last Admin: 02/09/17 20:13 Dose: 4 mg Thiamine HCl (Vitamin B-1 Tab*) 100 mg PO DAILY [facility] Last Admin: 02/10/17 09:56 Dose: 100 mg - Discharge Plan Discharge Plan: Drug/Alcohol Rehab
[2017-02-10] MEDS: cloNIDine TAB* 0.1 MG PO SCH ×2 (12:40→20:21)
[2017-02-10] MEDS: Atorvastatin* 10 MG TAB PO SCH (16:17)
[2017-02-10] MEDS: Nicotine Patch Removal NOTE FOLLOW UP SCH (20:21)
[2017-02-10] MEDS: risperiDONE TAB* 2 MG PO SCH (20:21)
[2017-02-10] MEDS: Citalopram TAB* 20 MG PO SCH (20:21)
[2017-02-11] MEDS: Thiamine TAB* 100 MG TAB PO SCH (08:41)
[2017-02-11] MEDS: Omeprazole CAP* 20 MG PO SCH ×2 (08:41→21:10)
[2017-02-11] MEDS: Folic Acid TAB* 1 MG PO SCH (08:41)
[2017-02-11] MEDS: Disulfiram TAB* 250 MG PO SCH (08:41)
[2017-02-11] MEDS: Nicotine PATCH 14 MG/24 HR* PATCH TRANSDERM SCH (08:41)
[2017-02-11] MEDS: cloNIDine TAB* 0.1 MG PO SCH ×2 (08:41→21:10)
[2017-02-11] MEDS: Nicotine Inhaler* 10 MG AMP INH PRN ×4 (08:44→21:12)
--- NOTE | 2017-02-11 11:45 | PN ---
Subjective Date of Service: 02/11/17 Interval History: Patient seen and examined at bedside. He reports no further episodes of chest pain and is doing well with his nicotine patch at 14mg. He denies being on any previous blood pressure medications. He denies palpitations, SOB, or any other concerns. Family History: Unchanged from Admission Social History: Unchanged from Admission Past Medical History: Unchanged from Admission Objective Active Medications: Atorvastatin Calcium (Lipitor*) 5 mg PO 1700 [facility] Last Admin: 02/10/17 16:17 Dose: 5 mg Citalopram Hydrobromide (Celexa Tab*) 20 mg PO BEDTIME [facility] Last Admin: 02/10/17 20:21 Dose: 20 mg Clonidine HCl (Catapres Tab*) 0.1 mg PO BID [facility] Last Admin: 02/11/17 08:41 Dose: 0.1 mg Disulfiram (Antabuse Tab*) 500 mg PO DAILY [facility] Last Admin: 02/11/17 08:41 Dose: 500 mg Folic Acid (Folvite Tab*) 1 mg PO DAILY [facility] Last Admin: 02/11/17 08:41 Dose: 1 mg Nicotine (Nicotine Inhaler*) 10 mg INH Q2H PRN PRN Reason: CRAVING Last Admin: 02/11/17 08:44 Dose: 10 mg Nicotine (Nicotine Patch 14 Mg/24 Hr*) 1 patch TRANSDERM DAILY [facility] Last Admin: 02/11/17 08:41 Dose: 1 patch Omeprazole (Prilosec Cap*) 20 mg PO BID [facility] Last Admin: 02/11/17 08:41 Dose: 20 mg Pharmacy Profile Note (Nicotine Patch Removal Note*) 1 note FOLLOW UP 2100 [facility] Last Admin: 02/10/17 20:21 Dose: 1 note Risperidone (Risperdal*) 4 mg PO BEDTIME [facility] Last Admin: 02/10/17 20:21 Dose: 4 mg Thiamine HCl (Vitamin B-1 Tab*) 100 mg PO DAILY [facility] Last Admin: 02/11/17 08:41 Dose: 100 mg Vital Signs 02/10/17 02/11/17 12:39 11:02 Temperature 98.6 F Pulse Rate 131 Respiratory 16 16 Rate Blood Pressure 148/75 (mmHg) O2 Sat by Pulse 97 Oximetry Oxygen Devices in Use Now: None Appearance: Male patient, ambulating in room, in NAD Eyes: PERRLA Ears/Nose/Mouth/Throat: Mucous Membranes Moist Neck: NL Appearance and Movements; NL JVP Respiratory: Symmetrical Chest Expansion and Respiratory Effort, Clear to Auscultation Cardiovascular: NL Sounds; No Murmurs; No JVD, RRR - apical pulse 100 Abdominal: NL Sounds; No Tenderness; No Distention Extremities: No Edema Skin: No Rash or Ulcers Neurological: - - alert, tangential thought and speech, is able to follow commands Result Diagrams: 02/04/17 21:35 02/04/17 21:36 Additional Lab and Data: Lab Results 02/03/17 02/03/17 02/03/17 Range/Units 14:25 14:25 14:25 WBC 19.0 H (3.5-10.8) 10^3/ul RBC 5.23 (4.0-5.4) 10^6/ul Hgb 16.0 (14.0-18.0) g/dl Hct 48 (42-52) % MCV 93 (80-94) fL MCH 31 (27-31) pg MCHC 33 (31-36) g/dl RDW 13 (10.5-15) % Plt Count 290 (150-450) 10^3/ul MPV 9 (7.4-10.4) um3 Neut % (Auto) 84.9 H (38-83) % Lymph % (Auto) 7.8 L (25-47) % Haywood % (Auto) 6.8 (1-9) % Eos % (Auto) 0 (0-6) % Baso % (Auto) 0.5 (0-2) % Absolute Neuts (auto) 16.1 H (1.5-7.7) 10^3/ul Absolute Lymphs (auto) 1.5 (1.0-4.8) 10^3/ul Absolute Monos (auto) 1.3 H (0-0.8) 10^3/ul Absolute Eos (auto) 0 (0-0.6) 10^3/ul Absolute Basos (auto) 0.1 (0-0.2) 10^3/ul Absolute Nucleated RBC 0.01 10^3/ul Nucleated RBC % 0.1 Sodium 135 (133-145) mmol/L Potassium 4.1 (3.5-5.0) mmol/L Chloride 102 (101-111) mmol/L Carbon Dioxide 24 (22-32) mmol/L Anion Gap 9 (2-11) mmol/L BUN 12 (6-24) mg/dL Creatinine 1.13 (0.67-1.17) mg/dL Est GFR ( Amer) 95.5 (>60) Est GFR (Non-Af Amer) 74.3 (>60) BUN/Creatinine Ratio 10.6 (8-20) Glucose 167 H (70-100) mg/dL Calcium 9.3 (8.6-10.3) mg/dL Total Bilirubin 0.50 (0.2-1.0) mg/dL AST 16 (13-39) U/L ALT 17 (7-52) U/L Alkaline Phosphatase 85 (34-104) U/L Total Creatine Kinase 166 (10-223) U/L Total Protein 7.0 (6.4-8.9) g/dL Albumin 4.2 (3.2-5.2) g/dL Globulin 2.8 (2-4) g/dL Albumin/Globulin Ratio 1.5 (1-3) TSH 0.46 (0.34-5.60) mcIU/mL Urine Color Yellow Urine Appearance Clear Urine pH 5.0 (5-9) Ur Specific Alexander 1.018 (1.010-1.030) Urine Protein 1+(30 mg/dl) H (Negative) Urine Ketones Negative (Negative) Urine Blood Negative (Negative) Urine Nitrate Negative (Negative) Urine Bilirubin Negative (Negative) Urine Urobilinogen Negative (Negative) Ur Leukocyte Esterase Negative (Negative) Urine WBC (Auto) Trace(0-5/hpf) (Absent) Urine RBC (Auto) Trace(0-2/hpf) (Absent) Ur Squamous Epith Cells Present H (Absent) Urine Bacteria Absent (Absent) Urine Glucose Negative (Negative) Urine Ascorbic Acid * H (Negative) Salicylates < 2.50 (<30) mg/dL Urine Opiates Screen (None Detect) Acetaminophen < 15 mcg/mL Ur Barbiturates Screen (None Detect) Ur Phencyclidine Scrn (None Detect) Ur Amphetamines Screen (None Detect) U Benzodiazepines Scrn (None Detect) Urine Cocaine Screen (None Detect) U Cannabinoids Screen (None Detect) Serum Alcohol < 10 (<10) mg/dL 02/03/17 Range/Units 14:25 WBC (3.5-10.8) 10^3/ul RBC (4.0-5.4) 10^6/ul Hgb (14.0-18.0) g/dl Hct (42-52) % MCV (80-94) fL MCH (27-31) pg MCHC (31-36) g/dl RDW (10.5-15) % Plt Count (150-450) 10^3/ul MPV (7.4-10.4) um3 Neut % (Auto) (38-83) % Lymph % (Auto) (25-47) % Haywood % (Auto) (1-9) % Eos % (Auto) (0-6) % Baso % (Auto) (0-2) % Absolute Neuts (auto) (1.5-7.7) 10^3/ul Absolute Lymphs (auto) (1.0-4.8) 10^3/ul Absolute Monos (auto) (0-0.8) 10^3/ul Absolute Eos (auto) (0-0.6) 10^3/ul Absolute Basos (auto) (0-0.2) 10^3/ul Absolute Nucleated RBC 10^3/ul Nucleated RBC % Sodium (133-145) mmol/L Potassium (3.5-5.0) mmol/L Chloride (101-111) mmol/L Carbon Dioxide (22-32) mmol/L Anion Gap (2-11) mmol/L BUN (6-24) mg/dL Creatinine (0.67-1.17) mg/dL Est GFR ( Amer) (>60) Est GFR (Non-Af Amer) (>60) BUN/Creatinine Ratio (8-20) Glucose (70-100) mg/dL Calcium (8.6-10.3) mg/dL Total Bilirubin (0.2-1.0) mg/dL AST (13-39) U/L ALT (7-52) U/L Alkaline Phosphatase (34-104) U/L Total Creatine Kinase (10-223) U/L Total Protein (6.4-8.9) g/dL Albumin (3.2-5.2) g/dL Globulin (2-4) g/dL Albumin/Globulin Ratio (1-3) TSH (0.34-5.60) mcIU/mL Urine Color Urine Appearance Urine pH (5-9) Ur Specific Alexander (1.010-1.030) Urine Protein (Negative) Urine Ketones (Negative) Urine Blood (Negative) Urine Nitrate (Negative) Urine Bilirubin (Negative) Urine Urobilinogen (Negative) Ur Leukocyte Esterase (Negative) Urine WBC (Auto) (Absent) Urine RBC (Auto) (Absent) Ur Squamous Epith Cells (Absent) Urine Bacteria (Absent) Urine Glucose (Negative) Urine Ascorbic Acid (Negative) Salicylates (<30) mg/dL Urine Opiates Screen None detected (None Detect) Acetaminophen mcg/mL Ur Barbiturates Screen None detected (None Detect) Ur Phencyclidine Scrn None detected (None Detect) Ur Amphetamines Screen None detected (None Detect) U Benzodiazepines Scrn None detected (None Detect) Urine Cocaine Screen None detected (None Detect) U Cannabinoids Screen None detected (None Detect) Serum Alcohol (<10) mg/dL Microbiology and Other Data: Microbiology 02/04/17 21:36 Aerobic Blood Culture - Preliminary Blood Venous No Growth Day 4 Anaerobic Blood Culture - Preliminary No Growth Day 4 Blood Culture - Final Assess/Plan/Problems-Billing Assessment: 36 y/o male patient with hx of polysubstance abuse presenting to [facility] [place] [facility] - Patient Problems (1) Chest pain Code(s): R07.9 - CHEST PAIN, UNSPECIFIED Comment: Now resolved. With short episode of epigastric chest pain, now denies having CP. EKG with no ischemic changes, troponins negative (2) Suicidal ideation Code(s): R45.851 - SUICIDAL IDEATIONS Comment: Management per psychiatry. (3) Depression Code(s): F32.9 - MAJOR DEPRESSIVE DISORDER, SINGLE EPISODE, UNSPECIFIED Comment: Management per psychiatry. Continue citalopram. (4) HTN (hypertension) Code(s): I10 - ESSENTIAL (PRIMARY) HYPERTENSION Comment: With tachycardia. Previously on clonidine, which was discontinued and now restarted. Continue to monitor HR and BP. Status and Disposition: Inpatient. Disposition per psychiatry. Will monitor BP/HR today and tomorrow, but will sign off. Please call with any further questions or concerns.
--- NOTE | 2017-02-11 16:34 | PN ---
Subjective - Subjective Subjective: Patient is a 36 year old male seen for follow up visit. Patient reports that he slept well last night, is reporting good appetite and energy levels. States that he is eager to talk to his family on the phone. Denies any depressed mood. Denies any negative side effects from current medication regimen. Objective - Appearance Appearance: Well Developed/Nourished Dysmorphic Features: No Hygiene: Normal Grooming: Well Kept - Behavior Psychomotor Activities: Normal Exhibits Abnormal Movement: No - Attitude and Relatedness Attitude and Relatedness: Cooperative Eye Contact: Good - Speech Quality: Unpressured Latencies: Normal - Mood Patient's Decription of Mood: "Good" - Affect Observed Affect: Non-labile Affect Consistent with: Euthymia - Thought Process Patient's Thought Process: Coherent Thought Content: No Passive Wish, No Suicidal Planning, No Homicidal Ideation, No Paranoid Ideation - Sensorium Experiencing Hallucinations: No, Sensorium is Clear Type of Hallucinations: Visual: No, Auditory: No, Command: No - Level of Consciousness Level of Consciousness: Alert Orientation: No Intact, No Orientated to Time, No Orientated to Place, No Orientated to Person - Impulse Control Impulse Control: Intact - Insight and Judgement Insight and Judgement: Fair - Medication Management Medication Management Adherence: Yes Assessment - Assessment Inpatient DSM-IV Dx: Mood disorder, not otherwise specified. Psychotic disorder not otherwise specified. Rule out Bipolar disorder, Schizoaffective disorder. Alcohol, cocaine, and opioid use disorders. Rule out medication adverse effect Plan - Plan Treatment Plan: Name: BRIAN HUBBARD Birthdate: 1980 [id number] Medications: Current Medications Atorvastatin Calcium (Lipitor*) 5 mg PO 1700 [facility] Last Admin: 02/10/17 16:17 Dose: 5 mg Citalopram Hydrobromide (Celexa Tab*) 20 mg PO BEDTIME [facility] Last Admin: 02/10/17 20:21 Dose: 20 mg Clonidine HCl (Catapres Tab*) 0.1 mg PO BID [facility] Last Admin: 02/11/17 08:41 Dose: 0.1 mg Disulfiram (Antabuse Tab*) 500 mg PO DAILY [facility] Last Admin: 02/11/17 08:41 Dose: 500 mg Folic Acid (Folvite Tab*) 1 mg PO DAILY [facility] Last Admin: 04/01/17 08:41 Dose: 1 mg Nicotine (Nicotine Inhaler*) 10 mg INH Q2H PRN PRN Reason: CRAVING Last Admin: 02/11/17 13:06 Dose: 10 mg Nicotine (Nicotine Patch 14 Mg/24 Hr*) 1 patch TRANSDERM DAILY [facility] Last Admin: 02/11/17 08:41 Dose: 1 patch Omeprazole (Prilosec Cap*) 20 mg PO BID [facility] Last Admin: 02/11/17 08:41 Dose: 20 mg Pharmacy Profile Note (Nicotine Patch Removal Note*) 1 note FOLLOW UP 2100 [facility] Last Admin: 02/10/17 20:21 Dose: 1 note Risperidone (Risperdal*) 4 mg PO BEDTIME [facility] Last Admin: 02/10/17 20:21 Dose: 4 mg Thiamine HCl (Vitamin B-1 Tab*) 100 mg PO DAILY [facility] Last Admin: 02/11/17 08:41 Dose: 100 mg
[2017-02-11] MEDS: Atorvastatin* 10 MG TAB PO SCH (16:53)
[2017-02-11] MEDS: Citalopram TAB* 20 MG PO SCH (21:10)
[2017-02-11] MEDS: risperiDONE TAB* 2 MG PO SCH (21:10)
[2017-02-11] MEDS: Nicotine Patch Removal NOTE FOLLOW UP SCH (21:12)
[2017-02-12] MEDS: cloNIDine TAB* 0.1 MG PO SCH ×2 (07:40→20:54)
[2017-02-12] MEDS: Folic Acid TAB* 1 MG PO SCH (07:40)
[2017-02-12] MEDS: Nicotine Inhaler* 10 MG AMP INH PRN ×3 (07:40→20:54)
[2017-02-12] MEDS: Omeprazole CAP* 20 MG PO SCH ×2 (07:40→20:54)
[2017-02-12] MEDS: Nicotine PATCH 14 MG/24 HR* PATCH TRANSDERM SCH (07:40)
[2017-02-12] MEDS: Thiamine TAB* 100 MG TAB PO SCH (07:40)
[2017-02-12] MEDS: Disulfiram TAB* 250 MG PO SCH (07:40)
[2017-02-12] MEDS ORDERED: Influenza VAC *QUAD* 2016-17* 0.5 ML SYRINGE IM ONE (09:00)
[2017-02-12] MEDS: Atorvastatin* 10 MG TAB PO SCH (16:42)
[2017-02-12] MEDS: Nicotine Patch Removal NOTE FOLLOW UP SCH (20:52)
[2017-02-12] MEDS: risperiDONE TAB* 2 MG PO SCH (20:54)
[2017-02-12] MEDS: Citalopram TAB* 20 MG PO SCH (20:54)
[2017-02-12 21:26] LABS: Urine Bilirubin Negative (Negative); Urine Glucose Negative (Negative); Urine Nitrite Negative (Negative)
[2017-02-13] MEDS: Nicotine Inhaler* 10 MG AMP INH PRN ×6 (08:11→20:44)
[2017-02-13] MEDS: Nicotine PATCH 14 MG/24 HR* PATCH TRANSDERM SCH (08:12)
[2017-02-13] MEDS: Disulfiram TAB* 250 MG PO SCH (08:13)
[2017-02-13] MEDS: Omeprazole CAP* 20 MG PO SCH ×2 (08:13→20:43)
[2017-02-13] MEDS: Folic Acid TAB* 1 MG PO SCH (08:13)
[2017-02-13] MEDS: Thiamine TAB* 100 MG TAB PO SCH (08:13)
[2017-02-13] MEDS: cloNIDine TAB* 0.1 MG PO SCH ×2 (08:14→20:43)
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
[2017-02-13] MEDS: Atorvastatin* 10 MG TAB PO SCH (16:16)
[2017-02-13] MEDS: Nicotine Patch Removal NOTE FOLLOW UP SCH ×2 (18:29→20:46)
[2017-02-13] MEDS: Citalopram TAB* 10 MG PO SCH (20:42)
[2017-02-13] MEDS: Divalproex DR TAB(*) 500 MG PO SCH (20:43)
[2017-02-13] MEDS: risperiDONE TAB* 2 MG PO SCH (20:43)
[2017-02-14] MEDS: Nicotine Inhaler* 10 MG AMP INH PRN ×4 (08:22→21:22)
[2017-02-14] MEDS: Thiamine TAB* 100 MG TAB PO SCH (08:23)
[2017-02-14] MEDS: cloNIDine TAB* 0.1 MG PO SCH ×2 (08:23→21:19)
[2017-02-14] MEDS: Omeprazole CAP* 20 MG PO SCH ×2 (08:23→21:20)
[2017-02-14] MEDS: Divalproex DR TAB(*) 500 MG PO SCH ×2 (08:23→21:19)
[2017-02-14] MEDS: Folic Acid TAB* 1 MG PO SCH (08:23)
[2017-02-14] MEDS: Disulfiram TAB* 250 MG PO SCH (08:23)
[2017-02-14] MEDS: Nicotine PATCH 14 MG/24 HR* PATCH TRANSDERM SCH (08:24)
[2017-02-14] MEDS: Atorvastatin* 10 MG TAB PO SCH (15:44)
[2017-02-14] MEDS: Citalopram TAB* 10 MG PO SCH (21:18)
[2017-02-14] MEDS: Nicotine Patch Removal NOTE FOLLOW UP SCH (21:20)
[2017-02-14] MEDS: risperiDONE TAB* 2 MG PO SCH (21:21)
[2017-02-15] MEDS: Nicotine Inhaler* 10 MG AMP INH PRN ×4 (02:57→20:55)
[2017-02-15] MEDS: Nicotine PATCH 14 MG/24 HR* PATCH TRANSDERM SCH (09:30)
[2017-02-15] MEDS: Folic Acid TAB* 1 MG PO SCH (09:30)
[2017-02-15] MEDS: Omeprazole CAP* 20 MG PO SCH ×2 (09:30→20:52)
[2017-02-15] MEDS: Thiamine TAB* 100 MG TAB PO SCH (09:30)
[2017-02-15] MEDS: cloNIDine TAB* 0.1 MG PO SCH ×2 (09:30→20:52)
[2017-02-15] MEDS: Divalproex DR TAB(*) 500 MG PO SCH ×2 (09:30→20:51)
[2017-02-15] MEDS: Disulfiram TAB* 250 MG PO SCH (09:31)
--- NOTE | 2017-02-15 11:43 | PN ---
MHU: Group Therapy Note - Service Type Service Type: [id number] Group Psychotherapy - Cognitive Behavioral Group Therapy ( CBT):Patient was attentive and participatory in CBT programming this morning, and remained in good behavioral control. Patient expressed positive insights regarding relevant treatment interventions and goals.
[2017-02-15] MEDS: Atorvastatin* 10 MG TAB PO SCH (16:51)
[2017-02-15] MEDS: risperiDONE TAB* 2 MG PO SCH (20:51)
[2017-02-15] MEDS: Citalopram TAB* 10 MG PO SCH (20:52)
[2017-02-15] MEDS: Nicotine Patch Removal NOTE FOLLOW UP SCH (20:58)
[2017-02-16] MEDS: Nicotine Inhaler* 10 MG AMP INH PRN ×6 (07:49→23:21)
[2017-02-16] MEDS: Nicotine PATCH 14 MG/24 HR* PATCH TRANSDERM SCH (10:04)
[2017-02-16] MEDS: cloNIDine TAB* 0.1 MG PO SCH ×2 (10:05→21:23)
[2017-02-16] MEDS: Disulfiram TAB* 250 MG PO SCH (10:05)
[2017-02-16] MEDS: Folic Acid TAB* 1 MG PO SCH (10:06)
[2017-02-16] MEDS: Omeprazole CAP* 20 MG PO SCH ×2 (10:06→21:23)
[2017-02-16] MEDS: Divalproex DR TAB(*) 500 MG PO SCH ×3 (10:06→21:23)
[2017-02-16] MEDS: Thiamine TAB* 100 MG TAB PO SCH (10:06)
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
[2017-02-16 11:55] LABS: Hematocrit 44 % (42-52); Mean Corpuscular HGB Conc 34 g/dl (31-36); Mean Corpuscular Hemoglobin 32 pg (27-31); Mean Corpuscular Volume 93 fL (80-94); Mean Platelet Volume 9 um3 (7.4-10.4); Red Blood Count 4.76 10^6/ul (4.0-5.4); Red Cell Distribution Width 13 % (10.5-15)
[2017-02-16 12:05] LABS: ALT 11 U/L (7-52); AST 14 U/L (13-39); Albumin 3.8 g/dL (3.2-5.2); Alkaline Phosphatase 78 U/L (34-104); Globulin 2.7 g/dL (2-4); Total Protein 6.5 g/dL (6.4-8.9)
--- NOTE | 2017-02-16 12:49 | RAD ---
INDICATION: Psychosis. COMPARISON: There are no prior studies available for comparison. TECHNIQUE: Sagittal T1, axial T1, T2, susceptibility, FLAIR and diffusion weighted images were obtained. The exam is limited due to motion artifact. FINDINGS: The ventricles, cisterns and sulci appear to be within normal limits. No significant focal abnormality or mass effect is seen. No areas of restricted diffusion are present. There is no evidence for infarct or hemorrhage. There is a small 1 cm nodule in the left maxillary sinus most consistent with a mucous retention cyst or polyp. The visualized portion paranasal sinuses and mastoid air cells otherwise appear clear. IMPRESSION: LIMITED STUDY, NO EVIDENCE FOR ACUTE FINDING OR INTRACRANIAL LESION.
--- NOTE | 2017-02-16 14:10 | PN ---
MHU: Group Therapy Note - Service Type Service Type: [id number] Group Psychotherapy - Cognitive Behavioral Group Therapy ( CBT):Patient was attentive and participatory in CBT programming this morning, and remained in good behavioral control. Patient expressed positive insights regarding relevant treatment interventions and goals.
[2017-02-16] MEDS: Atorvastatin* 10 MG TAB PO SCH (16:57)
[2017-02-16] MEDS: Citalopram TAB* 10 MG PO SCH (21:23)
[2017-02-16] MEDS: risperiDONE TAB* 2 MG PO SCH (21:23)
[2017-02-16] MEDS: Nicotine Patch Removal NOTE FOLLOW UP SCH (21:25)
[2017-02-17] MEDS: Nicotine Inhaler* 10 MG AMP INH PRN ×5 (09:00→22:42)
[2017-02-17] MEDS: Folic Acid TAB* 1 MG PO SCH (09:01)
[2017-02-17] MEDS: cloNIDine TAB* 0.1 MG PO SCH ×2 (09:01→20:44)
[2017-02-17] MEDS: Thiamine TAB* 100 MG TAB PO SCH (09:01)
[2017-02-17] MEDS: Divalproex DR TAB(*) 500 MG PO SCH ×2 (09:01→20:43)
[2017-02-17] MEDS: Omeprazole CAP* 20 MG PO SCH ×2 (09:01→20:44)
[2017-02-17] MEDS: Disulfiram TAB* 250 MG PO SCH (09:01)
[2017-02-17] MEDS: Nicotine PATCH 14 MG/24 HR* PATCH TRANSDERM SCH (09:02)
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
[2017-02-17] MEDS: Atorvastatin* 10 MG TAB PO SCH (17:42)
[2017-02-17] MEDS: risperiDONE TAB* 2 MG PO SCH (20:44)
[2017-02-17] MEDS: Citalopram TAB* 10 MG PO SCH (20:44)
[2017-02-17] MEDS: Nicotine Patch Removal NOTE FOLLOW UP SCH (20:47)
[2017-02-18] MEDS: Folic Acid TAB* 1 MG PO SCH (08:41)
[2017-02-18] MEDS: Thiamine TAB* 100 MG TAB PO SCH (08:41)
[2017-02-18] MEDS: Disulfiram TAB* 250 MG PO SCH (08:41)
[2017-02-18] MEDS: cloNIDine TAB* 0.1 MG PO SCH ×2 (08:41→21:41)
[2017-02-18] MEDS: Nicotine Inhaler* 10 MG AMP INH PRN ×6 (08:41→23:01)
[2017-02-18] MEDS: Omeprazole CAP* 20 MG PO SCH ×2 (08:41→21:41)
[2017-02-18] MEDS: Nicotine PATCH 14 MG/24 HR* PATCH TRANSDERM SCH (08:41)
[2017-02-18] MEDS: Divalproex DR TAB(*) 500 MG PO SCH ×2 (08:41→21:41)
[2017-02-18] MEDS: Atorvastatin* 10 MG TAB PO SCH (16:51)
[2017-02-18] MEDS: risperiDONE TAB* 2 MG PO SCH (21:41)
[2017-02-18] MEDS: Nicotine Patch Removal NOTE FOLLOW UP SCH (21:42)
[2017-02-18] MEDS: Citalopram TAB* 10 MG PO SCH (21:42)
[2017-02-19] MEDS: Nicotine PATCH 14 MG/24 HR* PATCH TRANSDERM SCH (08:40)
[2017-02-19] MEDS: Divalproex DR TAB(*) 500 MG PO SCH ×2 (08:41→20:56)
[2017-02-19] MEDS: Thiamine TAB* 100 MG TAB PO SCH (08:43)
[2017-02-19] MEDS: Omeprazole CAP* 20 MG PO SCH ×2 (08:43→20:56)
[2017-02-19] MEDS: Folic Acid TAB* 1 MG PO SCH (08:43)
[2017-02-19] MEDS: Disulfiram TAB* 250 MG PO SCH (08:43)
[2017-02-19] MEDS: cloNIDine TAB* 0.1 MG PO SCH ×2 (08:44→20:56)
[2017-02-19] MEDS: Nicotine Inhaler* 10 MG AMP INH PRN ×4 (10:36→21:19)
[2017-02-19] MEDS: Atorvastatin* 10 MG TAB PO SCH (17:19)
[2017-02-19] MEDS: risperiDONE TAB* 2 MG PO SCH (20:56)
[2017-02-19] MEDS: Citalopram TAB* 10 MG PO SCH (20:56)
[2017-02-19] MEDS: Nicotine Patch Removal NOTE FOLLOW UP SCH (21:15)
--- NOTE | 2017-02-20 08:10 | PN ---
Subjective - Subjective Service Type: [id number] Hosp care 15 min low complexity Subjective: Brian reports doing "fine" - had a "good" weekend. Denied side effects or symptoms, and agrees with Depakote increase. He is eager to plan discharge, and said he'd like to relocate to [place]. Objective - Appearance Appearance: Well Developed/Nourished Hygiene: Normal Grooming: Well Kept - Behavior Psychomotor Activities: Normal - Attitude and Relatedness Attitude and Relatedness: Superficially Cooperative Eye Contact: Fair - Speech Quality: Unpressured Latencies: Normal Quantity: Terse - Mood Patient's Decription of Mood: "Okay" - Affect Observed Affect: Non-labile Affect Consistent with: Euthymia - Thought Process Patient's Thought Process: Coherent, Goal Directed, Impoverished Thought Content: No Passive Wish, No Suicidal Planning, No Homicidal Ideation, No Paranoid Ideation - Sensorium Experiencing Hallucinations: No, Sensorium is Clear - Level of Consciousness Level of Consciousness: Alert - Impulse Control Impulse Control: Intact - Insight and Judgement Insight and Judgement: Poor Assessment - Assessment Merits Inpatient Hospitalization: Consolidate Improvements, For Discharge Planning, Pending Safe DC Plan Inpatient DSM-IV Dx: Mood disorder, not otherwise specified. Psychotic disorder not otherwise specified. Rule out Bipolar disorder, Schizoaffective disorder. Alcohol, cocaine, and opioid use disorders. Rule out medication adverse effect Clinical Impression: 36-year-old male with reported history of violence and suicidal behavior, self- mutilating behavior, depressive condition, outpatient psychiatric treatment, psychiatric hospitalization, and incarceration along with significant substance use disorders. He was admitted due to concern over abnormal behavior at residential rehab facility with "walking into patricio" and apparent disinhibition , along with suicidal statements. Brian has had an evolving course, with different challenges at different stages; but overall is doing much better. 1. Symptoms and pathology: a- First concern was for suicidal / violent ideation, this prompted his admission and resolved early in his course here. b- Later, psychotic functioning appeared prominent. Both at [facility] and on our observation Brian appeared to have psychotic features: disorganized thought process, ambivlanece (negative symptoms?), oddness, responses to internal stimuli. These symptoms have improved. He is more organized, spontaneous. c- he has been sexually inappropriate - and its not clear if the behavior is driven by cognitive/intellectual deficits, or personality factors. This is also milder. d- he has clear cognitive / intellectual limitations. Testing confirmed it. These could be life-long, or sequelae to prior head injury or substance use. e- he additionally may have personality factors (Cluster B) that caused historic self harm, violence, risky and socially inappropriate behavior. 2. Behavior: He has been basically safe on checks, cooperative with routines, is participating in programming, and consistently free of suicidal or violent ideation. He has been repeated sexually inappropriate at times, but not harmful ; and less so recently. 3. Evaluations: include psychological testing with MMPI - he had an exaggerated profile that was not inconsistent with psychosis, testing also suggested possible hypomanic features and consideration for Bipolar disorder. Cognitive testing showed definite impairment consistent with Mild cognitive impairment or Mild intellectual disability. (see Dr. Marques's testing consultation notes). MRI of Brian's Brain showed no intracranial pathology. 4. Medical. Hospitalist consultation was obtained and has evaluated hypertension, tachycardia, and chest pain - computing consultant signed off. 5. Medication management involves continuing Lexapro (Celexa given here) and disulfiram, starting Risperdal for coverage psychotic and mood disorder features ; and adding Depakote for mood features and impulsiveness (level 46 on 02/16 on 500mg BID). 6. Discharge planning. He is psychiatrically clear for rehab or lower level of care. Complicated at this point due to Brian's homelessness. Plan - Plan Treatment Plan: Name: BRIAN HUBBARD Birthdate: 1980 [id number] Continued Medication Management: Start Medication Medications: Current Medications Atorvastatin Calcium (Lipitor*) 5 mg PO 1700 [facility] Last Admin: 02/19/17 17:19 Dose: 5 mg Citalopram Hydrobromide (Celexa Tab*) 30 mg PO BEDTIME [facility] Last Admin: 02/19/17 20:56 Dose: 30 mg Clonidine HCl (Catapres Tab*) 0.1 mg PO BID [facility] Last Admin: 02/19/17 20:56 Dose: 0.1 mg Disulfiram (Antabuse Tab*) 500 mg PO DAILY [facility] Last Admin: 02/19/17 08:43 Dose: 500 mg Divalproex Sodium (Depakote Dr Tab(*)) 500 mg PO BID [facility] Last Admin: 02/19/17 20:56 Dose: 500 mg Folic Acid (Folvite Tab*) 1 mg PO DAILY [facility] Last Admin: 02/19/17 08:43 Dose: 1 mg Nicotine (Nicotine Inhaler*) 10 mg INH Q2H PRN PRN Reason: CRAVING Last Admin: 02/19/17 21:19 Dose: 10 mg Nicotine (Nicotine Patch 14 Mg/24 Hr*) 1 patch TRANSDERM DAILY [facility] Last Admin: 02/19/17 08:40 Dose: 1 patch Omeprazole (Prilosec Cap*) 20 mg PO BID [facility] Last Admin: 02/19/17 20:56 Dose: 20 mg Pharmacy Profile Note (Nicotine Patch Removal Note*) 1 note FOLLOW UP 2100 [facility] Last Admin: 02/19/17 21:15 Dose: 1 note Risperidone (Risperdal*) 4 mg PO BEDTIME [facility] Last Admin: 02/19/17 20:56 Dose: 4 mg Thiamine HCl (Vitamin B-1 Tab*) 100 mg PO DAILY [facility] Last Admin: 02/19/17 08:43 Dose: 100 mg - Discharge Plan Discharge Plan: Drug/Alcohol Rehab
[2017-02-20] MEDS: Disulfiram TAB* 250 MG PO SCH (09:23)
[2017-02-20] MEDS: Thiamine TAB* 100 MG TAB PO SCH (09:23)
[2017-02-20] MEDS: Folic Acid TAB* 1 MG PO SCH (09:23)
[2017-02-20] MEDS: Omeprazole CAP* 20 MG PO SCH ×2 (09:23→20:02)
[2017-02-20] MEDS: cloNIDine TAB* 0.1 MG PO SCH ×2 (09:23→20:02)
[2017-02-20] MEDS: Divalproex DR TAB(*) 500 MG PO SCH ×2 (09:23→20:02)
[2017-02-20] MEDS: Divalproex DR TAB(*) 250 MG PO SCH ×2 (09:25→20:02)
[2017-02-20] MEDS: Nicotine PATCH 14 MG/24 HR* PATCH TRANSDERM SCH (09:25)
[2017-02-20] MEDS: Nicotine Inhaler* 10 MG AMP INH PRN ×5 (09:50→22:13)
[2017-02-20] MEDS: Atorvastatin* 10 MG TAB PO SCH (17:36)
[2017-02-20] MEDS: Nicotine Patch Removal NOTE FOLLOW UP SCH (20:01)
[2017-02-20] MEDS: Citalopram TAB* 10 MG PO SCH (20:01)
[2017-02-20] MEDS: risperiDONE TAB* 2 MG PO SCH (20:02)
[2017-02-21] MEDS: Divalproex DR TAB(*) 500 MG PO SCH ×2 (08:17→21:30)
[2017-02-21] MEDS: Disulfiram TAB* 250 MG PO SCH (08:17)
[2017-02-21] MEDS: cloNIDine TAB* 0.1 MG PO SCH ×2 (08:17→21:31)
[2017-02-21] MEDS: Thiamine TAB* 100 MG TAB PO SCH (08:18)
[2017-02-21] MEDS: Omeprazole CAP* 20 MG PO SCH ×2 (08:18→21:30)
[2017-02-21] MEDS: Folic Acid TAB* 1 MG PO SCH (08:18)
[2017-02-21] MEDS: Divalproex DR TAB(*) 250 MG PO SCH ×2 (08:18→21:31)
[2017-02-21] MEDS: Nicotine PATCH 14 MG/24 HR* PATCH TRANSDERM SCH (08:18)
[2017-02-21] MEDS: Nicotine Inhaler* 10 MG AMP INH PRN ×5 (08:18→21:33)
[2017-02-21] MEDS: Atorvastatin* 10 MG TAB PO SCH (16:27)
[2017-02-21] MEDS: risperiDONE TAB* 2 MG PO SCH (21:31)
[2017-02-21] MEDS: Citalopram TAB* 10 MG PO SCH (21:32)
[2017-02-21] MEDS: Nicotine Patch Removal NOTE FOLLOW UP SCH (22:36)
[2017-02-22] MEDS: Thiamine TAB* 100 MG TAB PO SCH (08:27)
[2017-02-22] MEDS: Divalproex DR TAB(*) 500 MG PO SCH ×2 (08:27→21:13)
[2017-02-22] MEDS: cloNIDine TAB* 0.1 MG PO SCH ×2 (08:27→21:12)
[2017-02-22] MEDS: Nicotine Inhaler* 10 MG AMP INH PRN ×7 (08:28→23:15)
[2017-02-22] MEDS: Folic Acid TAB* 1 MG PO SCH (08:28)
[2017-02-22] MEDS: Disulfiram TAB* 250 MG PO SCH (08:28)
[2017-02-22] MEDS: Nicotine PATCH 14 MG/24 HR* PATCH TRANSDERM SCH (08:28)
[2017-02-22] MEDS: Omeprazole CAP* 20 MG PO SCH ×2 (08:28→21:13)
[2017-02-22] MEDS: Divalproex DR TAB(*) 250 MG PO SCH ×2 (08:28→21:13)
--- NOTE | 2017-02-22 11:16 | PN ---
Subjective - Subjective Service Type: 12002 Hosp care 15 min low complexity Subjective: Brian had no spontaneous comments, concerns or complaints. He denied side effects , agreed with medication plan, and appreciated discussion of efforts around discharge planning. Objective - Appearance Appearance: Healthy Appearing Hygiene: Normal Grooming: Fairly Well Kept - Behavior Psychomotor Activities: Normal - Attitude and Relatedness Attitude and Relatedness: Superficially Cooperative Eye Contact: Good - Speech Quality: Unpressured Latencies: Normal Quantity: Terse - Mood Patient's Decription of Mood: "Fine" - Affect Observed Affect: Non-labile Affect Consistent with: Euthymia - Thought Process Patient's Thought Process: Impoverished Thought Content: No Passive Wish, No Suicidal Planning, No Homicidal Ideation, No Paranoid Ideation - Sensorium Experiencing Hallucinations: No, Sensorium is Clear - Level of Consciousness Level of Consciousness: Alert - Impulse Control Impulse Control: Intact - Insight and Judgement Insight and Judgement: Poor Assessment - Assessment Merits Inpatient Hospitalization: For Ongoing Evaluation, Consolidate Improvements, For Discharge Planning, Pending Safe DC Plan Inpatient DSM-IV Dx: Mood disorder, not otherwise specified. Psychotic disorder not otherwise specified. Rule out Bipolar disorder, Schizoaffective disorder. Alcohol, cocaine, and opioid use disorders. Rule out medication adverse effect Clinical Impression: 36-year-old male with reported history of violence and suicidal behavior, self- mutilating behavior, depressive condition, outpatient psychiatric treatment, psychiatric hospitalization, and incarceration along with significant substance use disorders. He was admitted due to concern over abnormal behavior at residential rehab facility with "walking into patricio" and apparent disinhibition , along with suicidal statements. Brian has had an evolving course, with different challenges at different stages; overall he is doing much better. 1. Symptoms and pathology: a- First concern was for suicidal / violent ideation, this prompted his admission and resolved early in his course here. b- Later, psychotic functioning appeared prominent. Both at [facility] and on our observation Brian appeared to have psychotic features: disorganized thought process, ambivlanece (negative symptoms?), oddness, responses to internal stimuli. These symptoms have improved substantially. He is more organized and spontaneous. c- he has been sexually inappropriate - its not clear if the behavior is driven by cognitive/intellectual deficits, or personality factors. This is also improved. d- he has clear cognitive / intellectual limitations. Testing confirmed it. These could be life-long, or sequelae to prior head injury or substance use. e- he additionally may have personality factors (Cluster B) that caused historic self harm, violence, risky and socially inappropriate behavior. 2. Behavior: He has been basically safe on checks, cooperative with routines, is participating in programming, and consistently free of suicidal or violent ideation. He has been repeated sexually inappropriate at times, but not harmful ; and less so recently. 3. Evaluations: include psychological testing with MMPI - he had an exaggerated profile that was not inconsistent with psychosis, testing also suggested possible hypomanic features and consideration for Bipolar disorder. Cognitive testing showed definite impairment consistent with Mild cognitive impairment or Mild intellectual disability. (see Dr. Marques's testing consultation notes). MRI of Brian's Brain showed no intracranial pathology. 4. Medical. Hospitalist consultation was obtained and has evaluated hypertension, tachycardia, and chest pain - leasing sales consultant signed off. 5. Medication management involves continuing Lexapro (Celexa given here) and disulfiram, starting Risperdal for coverage psychotic and mood disorder features ; and adding Depakote for mood features and impulsiveness (level 46 on 02/16 on 500mg BID). 6. Discharge planning. He is psychiatrically clear for rehab or lower level of care. Complicated at this point due to Brian's homelessness. Plan - Plan Treatment Plan: Name: BRIAN HUBBARD Birthdate: 1980 [id number] Medications: Current Medications Atorvastatin Calcium (Lipitor*) 5 mg PO 1700 [facility] Last Admin: 02/21/17 16:27 Dose: 5 mg Citalopram Hydrobromide (Celexa Tab*) 30 mg PO BEDTIME [facility] Last Admin: 02/21/17 21:32 Dose: 30 mg Clonidine HCl (Catapres Tab*) 0.1 mg PO BID [facility] Last Admin: 02/22/17 08:27 Dose: 0.1 mg Disulfiram (Antabuse Tab*) 500 mg PO DAILY [facility] Last Admin: 02/22/17 08:28 Dose: 500 mg Divalproex Sodium (Depakote Dr Tab(*)) 500 mg PO BID [facility] Last Admin: 02/22/17 08:27 Dose: 500 mg Divalproex Sodium (Depakote Dr Tab(*)) 250 mg PO BID [facility] Last Admin: 02/22/17 08:28 Dose: 250 mg Folic Acid (Folvite Tab*) 1 mg PO DAILY [facility] Last Admin: 02/22/17 08:28 Dose: 1 mg Nicotine (Nicotine Inhaler*) 10 mg INH Q2H PRN PRN Reason: CRAVING Last Admin: 02/22/17 10:59 Dose: 10 mg Nicotine (Nicotine Patch 14 Mg/24 Hr*) 1 patch TRANSDERM DAILY [facility] Last Admin: 02/22/17 08:28 Dose: 1 patch Omeprazole (Prilosec Cap*) 20 mg PO BID [facility] Last Admin: 02/22/17 08:28 Dose: 20 mg Pharmacy Profile Note (Nicotine Patch Removal Note*) 1 note FOLLOW UP 2100 [facility] Last Admin: 02/21/17 22:36 Dose: 1 note Risperidone (Risperdal*) 4 mg PO BEDTIME [facility] Last Admin: 02/21/17 21:31 Dose: 4 mg Thiamine HCl (Vitamin B-1 Tab*) 100 mg PO DAILY [facility] Last Admin: 02/22/17 08:27 Dose: 100 mg - Discharge Plan Discharge Plan: Drug/Alcohol Rehab
--- NOTE | 2017-02-22 12:19 | PN ---
MHU: Group Therapy Note - Service Type Service Type: [id number] Group Psychotherapy - Cognitive Behavioral Group Therapy ( CBT):Patient attended CBT programming this morning and presented with flat affect that did not vary with discussion. Although responsive to direct prompts to respond to questions, patient did not engage in spontaneous conversation.
[2017-02-22] MEDS: Atorvastatin* 10 MG TAB PO SCH (16:38)
[2017-02-22] MEDS: Citalopram TAB* 10 MG PO SCH (21:12)
[2017-02-22] MEDS: risperiDONE TAB* 2 MG PO SCH (21:12)
[2017-02-23 07:05] LABS: Hematocrit 46 % (42-52); Hemoglobin 15.4 g/dl (14.0-18.0); Mean Corpuscular HGB Conc 33 g/dl (31-36); Mean Corpuscular Hemoglobin 31 pg (27-31); Mean Corpuscular Volume 93 fL (80-94); Mean Platelet Volume 9 um3 (7.4-10.4); Red Blood Count 4.92 10^6/ul (4.0-5.4); Red Cell Distribution Width 13 % (10.5-15); White Blood Count 10.8 10^3/ul (3.5-10.8)
[2017-02-23 07:25] LABS: ALT 11 U/L (7-52); AST 12 U/L (13-39); Albumin 3.5 g/dL (3.2-5.2); Alkaline Phosphatase 65 U/L (34-104); Globulin 2.5 g/dL (2-4)
[2017-02-23 07:42] LABS: Add Diff/Slide Review? Slide Review Added; Comments Flag Yes
[2017-02-23] MEDS: Nicotine Patch Removal NOTE FOLLOW UP SCH ×2 (09:03→21:03)
[2017-02-23] MEDS: cloNIDine TAB* 0.1 MG PO SCH ×2 (09:04→21:01)
[2017-02-23] MEDS: Omeprazole CAP* 20 MG PO SCH ×2 (09:04→21:01)
[2017-02-23] MEDS: Nicotine PATCH 14 MG/24 HR* PATCH TRANSDERM SCH (09:04)
[2017-02-23] MEDS: Folic Acid TAB* 1 MG PO SCH (09:04)
[2017-02-23] MEDS: Disulfiram TAB* 250 MG PO SCH (09:05)
[2017-02-23] MEDS: Thiamine TAB* 100 MG TAB PO SCH (09:05)
[2017-02-23] MEDS: Divalproex DR TAB(*) 500 MG PO SCH ×2 (09:05→21:01)
[2017-02-23] MEDS: Divalproex DR TAB(*) 250 MG PO SCH ×2 (09:05→21:01)
[2017-02-23] MEDS: Nicotine Inhaler* 10 MG AMP INH PRN ×5 (09:11→23:18)
[2017-02-23] MEDS: Atorvastatin* 10 MG TAB PO SCH (16:50)
[2017-02-23] MEDS: Citalopram TAB* 10 MG PO SCH (21:00)
[2017-02-23] MEDS: risperiDONE TAB* 2 MG PO SCH (21:01)
[2017-02-24] MEDS: Disulfiram TAB* 250 MG PO SCH (09:52)
[2017-02-24] MEDS: Divalproex DR TAB(*) 500 MG PO SCH ×2 (09:52→20:52)
[2017-02-24] MEDS: Thiamine TAB* 100 MG TAB PO SCH (09:52)
[2017-02-24] MEDS: cloNIDine TAB* 0.1 MG PO SCH ×2 (09:53→20:50)
[2017-02-24] MEDS: Divalproex DR TAB(*) 250 MG PO SCH ×2 (09:53→20:51)
[2017-02-24] MEDS: Omeprazole CAP* 20 MG PO SCH ×2 (09:53→20:50)
[2017-02-24] MEDS: Nicotine PATCH 14 MG/24 HR* PATCH TRANSDERM SCH (09:54)
[2017-02-24] MEDS: Folic Acid TAB* 1 MG PO SCH (09:54)
[2017-02-24] MEDS: Nicotine Inhaler* 10 MG AMP INH PRN ×4 (09:55→20:53)
--- NOTE | 2017-02-24 12:17 | PN ---
MHU: Group Therapy Note - Service Type Service Type: [id number] Group Psychotherapy - Cognitive Behavioral Group Therapy ( CBT):Patient attended CBT programming this morning and presented with flat affect that did not vary with discussion. Although responsive to direct prompts to respond to questions, patient did not engage in spontaneous conversation.
--- NOTE | 2017-02-24 12:38 | PN ---
Subjective - Subjective Service Type: 86146 Hosp care 15 min low complexity Subjective: Brian had no spontaenous comments, complaints, or concerns. He denied side effects or problems. He acknowledges we're working on finding him a place to stay. Objective - Appearance Appearance: Healthy Appearing Hygiene: Normal Grooming: Well Kept - Behavior Psychomotor Activities: Normal - Attitude and Relatedness Attitude and Relatedness: Withdrawn Eye Contact: Fair - Speech Quality: Unpressured Latencies: Normal Quantity: Terse - Mood Patient's Decription of Mood: "Fine" - Affect Observed Affect: Unvariable Affect Consistent with: Euthymia - Thought Process Patient's Thought Process: Impoverished Thought Content: No Passive Wish, No Suicidal Planning, No Homicidal Ideation, No Paranoid Ideation - Sensorium Experiencing Hallucinations: No, Sensorium is Clear - Level of Consciousness Level of Consciousness: Alert - Impulse Control Impulse Control: Poor - Insight and Judgement Insight and Judgement: Poor Assessment - Assessment Merits Inpatient Hospitalization: For Ongoing Evaluation, Consolidate Improvements, For Discharge Planning, Pending Safe DC Plan Inpatient DSM-IV Dx: Mood disorder, not otherwise specified. Psychotic disorder not otherwise specified. Rule out Bipolar disorder, Schizoaffective disorder. Alcohol, cocaine, and opioid use disorders. Rule out medication adverse effect Clinical Impression: 36-year-old male with reported history of violence and suicidal behavior, self- mutilating behavior, depressive condition, outpatient psychiatric treatment, psychiatric hospitalization, and incarceration along with significant substance use disorders. He was admitted due to concern over abnormal behavior at residential rehab facility with "walking into patricio" and apparent disinhibition , along with suicidal statements. Brian has had an evolving course, with different challenges at different stages; overall he is doing much better. 1. Symptoms and pathology: a- First concern was for suicidal / violent ideation, this prompted his admission and resolved early in his course here. b- Later, psychotic functioning appeared prominent. Both at [facility] and on our observation Brian appeared to have psychotic features: disorganized thought process, ambivlanece (negative symptoms?), oddness, responses to internal stimuli. These symptoms have improved substantially. He is more organized and spontaneous. c- he has been sexually inappropriate - its not clear if the behavior is driven by cognitive/intellectual deficits, or personality factors. d- he has clear cognitive / intellectual limitations. Testing confirmed it. These could be life-long, or sequelae to prior head injury or substance use. e- he additionally may have personality factors (Cluster B) that caused historic self harm, violence, risky and socially inappropriate behavior. 2. Behavior: He has been basically safe on checks, cooperative with routines, is participating in programming, and consistently free of suicidal or violent ideation. He has been repeated sexually inappropriate at times, but not harmful ; and less so recently. 3. Evaluations: include psychological testing with MMPI - he had an exaggerated profile that was not inconsistent with psychosis, testing also suggested possible hypomanic features and consideration for Bipolar disorder. Cognitive testing showed definite impairment consistent with Mild cognitive impairment or Mild intellectual disability. (see Dr. Marques's testing consultation notes). MRI of Brian's Brain showed no intracranial pathology. 4. Medical. Hospitalist consultation was obtained and has evaluated hypertension, tachycardia, and chest pain - office 365 consultant signed off. 5. Medication management involves continuing Lexapro (Celexa given here) and disulfiram, starting Risperdal for coverage psychotic and mood disorder features ; and adding Depakote for mood features and impulsiveness (level 76 on 02/23 on 750mg BID). 6. Discharge planning. He is psychiatrically clear for rehab or lower level of care. Complicated at this point due to Brian's homelessness. Plan - Plan Treatment Plan: Name: BRIAN HUBBARD Birthdate: 1980 [id number] Continued Medication Management: Start Medication Medications: Current Medications Atorvastatin Calcium (Lipitor*) 5 mg PO 1700 [facility] Last Admin: 02/23/17 16:50 Dose: 5 mg Citalopram Hydrobromide (Celexa Tab*) 30 mg PO BEDTIME [facility] Last Admin: 02/23/17 21:00 Dose: 30 mg Clonidine HCl (Catapres Tab*) 0.1 mg PO BID [facility] Last Admin: 02/24/17 09:53 Dose: 0.1 mg Disulfiram (Antabuse Tab*) 500 mg PO DAILY [facility] Last Admin: 02/24/17 09:52 Dose: 500 mg Divalproex Sodium (Depakote Dr Tab(*)) 500 mg PO BID [facility] Last Admin: 02/24/17 09:52 Dose: 500 mg Divalproex Sodium (Depakote Dr Tab(*)) 250 mg PO BID [facility] Last Admin: 02/24/17 09:53 Dose: 250 mg Folic Acid (Folvite Tab*) 1 mg PO DAILY [facility] Last Admin: 02/24/17 09:54 Dose: 1 mg Nicotine (Nicotine Inhaler*) 10 mg INH Q2H PRN PRN Reason: CRAVING Last Admin: 02/24/17 12:16 Dose: 10 mg Nicotine (Nicotine Patch 14 Mg/24 Hr*) 1 patch TRANSDERM DAILY [facility] Last Admin: 02/24/17 09:54 Dose: 1 patch Omeprazole (Prilosec Cap*) 20 mg PO BID [facility] Last Admin: 02/24/17 09:53 Dose: 20 mg Pharmacy Profile Note (Nicotine Patch Removal Note*) 1 note FOLLOW UP 2100 [facility] Last Admin: 02/23/17 21:03 Dose: 1 note Risperidone (Risperdal*) 4 mg PO BEDTIME [facility] Last Admin: 02/23/17 21:01 Dose: 4 mg Thiamine HCl (Vitamin B-1 Tab*) 100 mg PO DAILY [facility] Last Admin: 02/24/17 09:52 Dose: 100 mg - Discharge Plan Discharge Plan: Outpatient Follow Up
[2017-02-24] MEDS: Atorvastatin* 10 MG TAB PO SCH (17:31)
[2017-02-24] MEDS: Citalopram TAB* 10 MG PO SCH (20:49)
[2017-02-24] MEDS: risperiDONE TAB* 2 MG PO SCH (20:51)
[2017-02-24] MEDS: Nicotine Patch Removal NOTE FOLLOW UP SCH (22:01)
[2017-02-25] MEDS: Omeprazole CAP* 20 MG PO SCH ×2 (10:33→20:21)
[2017-02-25] MEDS: Divalproex DR TAB(*) 500 MG PO SCH ×2 (10:33→20:21)
[2017-02-25] MEDS: Disulfiram TAB* 250 MG PO SCH (10:33)
[2017-02-25] MEDS: Thiamine TAB* 100 MG TAB PO SCH (10:34)
[2017-02-25] MEDS: Folic Acid TAB* 1 MG PO SCH (10:34)
[2017-02-25] MEDS: Divalproex DR TAB(*) 250 MG PO SCH ×2 (10:34→20:23)
[2017-02-25] MEDS: Nicotine PATCH 14 MG/24 HR* PATCH TRANSDERM SCH (10:35)
[2017-02-25] MEDS: cloNIDine TAB* 0.1 MG PO SCH ×2 (11:05→22:35)
[2017-02-25] MEDS: Nicotine Inhaler* 10 MG AMP INH PRN ×4 (12:37→22:06)
[2017-02-25] MEDS: Atorvastatin* 10 MG TAB PO SCH (17:09)
[2017-02-25] MEDS: risperiDONE TAB* 2 MG PO SCH (20:21)
[2017-02-25] MEDS: Citalopram TAB* 10 MG PO SCH (20:22)
[2017-02-25] MEDS: Nicotine Patch Removal NOTE FOLLOW UP SCH (20:24)
[2017-02-26] MEDS: Nicotine Inhaler* 10 MG AMP INH PRN ×5 (07:32→20:53)
[2017-02-26] MEDS: Omeprazole CAP* 20 MG PO SCH ×2 (08:28→20:00)
[2017-02-26] MEDS: Divalproex DR TAB(*) 250 MG PO SCH ×2 (08:29→20:00)
[2017-02-26] MEDS: Disulfiram TAB* 250 MG PO SCH (08:29)
[2017-02-26] MEDS: Divalproex DR TAB(*) 500 MG PO SCH ×2 (08:29→20:00)
[2017-02-26] MEDS: cloNIDine TAB* 0.1 MG PO SCH ×2 (08:29→20:16)
[2017-02-26] MEDS: Thiamine TAB* 100 MG TAB PO SCH (08:29)
[2017-02-26] MEDS: Folic Acid TAB* 1 MG PO SCH (08:30)
[2017-02-26] MEDS: Nicotine PATCH 14 MG/24 HR* PATCH TRANSDERM SCH (08:31)
[2017-02-26] MEDS: Atorvastatin* 10 MG TAB PO SCH (16:30)
[2017-02-26] MEDS: Citalopram TAB* 10 MG PO SCH (19:59)
[2017-02-26] MEDS: risperiDONE TAB* 2 MG PO SCH (20:00)
[2017-02-26] MEDS: Nicotine Patch Removal NOTE FOLLOW UP SCH (20:02)
[2017-02-27] MEDS: Omeprazole CAP* 20 MG PO SCH ×2 (08:37→20:28)
[2017-02-27] MEDS: Divalproex DR TAB(*) 250 MG PO SCH ×2 (08:37→20:29)
[2017-02-27] MEDS: Folic Acid TAB* 1 MG PO SCH (08:37)
[2017-02-27] MEDS: Divalproex DR TAB(*) 500 MG PO SCH ×2 (08:37→20:28)
[2017-02-27] MEDS: Thiamine TAB* 100 MG TAB PO SCH (08:38)
[2017-02-27] MEDS: Disulfiram TAB* 250 MG PO SCH (08:38)
[2017-02-27] MEDS: cloNIDine TAB* 0.1 MG PO SCH ×2 (08:38→20:29)
[2017-02-27] MEDS: Nicotine PATCH 14 MG/24 HR* PATCH TRANSDERM SCH (08:51)
--- NOTE | 2017-02-27 12:16 | PN ---
MHU: Group Therapy Note - Service Type Service Type: [id number] Group Psychotherapy - Cognitive Behavioral Group Therapy ( CBT):Patient attended CBT programming this morning and presented with flat affect that did not vary with discussion. Although responsive to direct prompts to respond to questions, patient did not engage in spontaneous conversation.
[2017-02-27] MEDS: Nicotine Inhaler* 10 MG AMP INH PRN ×4 (12:44→20:28)
[2017-02-27] MEDS: Atorvastatin* 10 MG TAB PO SCH (17:27)
[2017-02-27] MEDS: Citalopram TAB* 10 MG PO SCH (20:29)
[2017-02-27] MEDS: risperiDONE TAB* 2 MG PO SCH (20:29)
[2017-02-27] MEDS: Nicotine Patch Removal NOTE FOLLOW UP SCH (20:30)
--- NOTE | 2017-02-27 22:24 | PN ---
Subjective - Subjective Subjective: Discussed Brian in treatment team, and interacted with him briefly on the unit. Assessment - Assessment Merits Inpatient Hospitalization: Consolidate Improvements, For Discharge Planning, Pending Safe PR Plan Inpatient DSM-IV Dx: Mood disorder, not otherwise specified. Psychotic disorder not otherwise specified. Rule out Bipolar disorder, Schizoaffective disorder. Alcohol, cocaine, and opioid use disorders. Rule out medication adverse effect Clinical Impression: 36-year-old male with reported history of violence and suicidal behavior, self- mutilating behavior, depressive condition, outpatient psychiatric treatment, psychiatric hospitalization, and incarceration along with significant substance use disorders. He was admitted due to concern over abnormal behavior at residential rehab facility with "walking into patricio" and apparent disinhibition , along with suicidal statements. Brian has had an evolving course, with different challenges at different stages; overall he is doing much better. 1. Symptoms and pathology: a- First concern was for suicidal / violent ideation, this prompted his admission and resolved early in his course here. b- Later, psychotic functioning appeared prominent. Both at [facility] and on our observation Brian appeared to have psychotic features: disorganized thought process, ambivlanece (negative symptoms?), oddness, responses to internal stimuli. These symptoms have improved substantially. He is more organized and spontaneous. c- he has been sexually inappropriate - its not clear if the behavior is driven by cognitive/intellectual deficits, or personality factors. d- he has clear cognitive / intellectual limitations. Testing confirmed it. These could be life-long, or sequelae to prior head injury or substance use. e- he additionally may have personality factors (Cluster B) that caused historic self harm, violence, risky and socially inappropriate behavior. 2. Behavior: He has been basically safe on checks, cooperative with routines, is participating in programming, and consistently free of suicidal or violent ideation. He has been repeated;y sexually inappropriate at times, but not harmful; and less so recently. 3. Evaluations: include psychological testing with MMPI - he had an exaggerated profile that was not inconsistent with psychosis, testing also suggested possible hypomanic features and consideration for Bipolar disorder. Cognitive testing showed definite impairment consistent with Mild cognitive impairment or Mild intellectual disability. (see Dr. Marques's testing consultation notes). MRI of Brian's Brain showed no intracranial pathology. 4. Medical. Hospitalist consultation was obtained and has evaluated hypertension, tachycardia, and chest pain - [employer] consultant signed off. 5. Medication management involves continuing Lexapro (Celexa given here) and disulfiram, starting Risperdal for coverage psychotic and mood disorder features ; and adding Depakote for mood features and impulsiveness (level 76 on 02/23 on 750mg BID). 6. Discharge planning. He is psychiatrically clear for rehab or lower level of care. Complicated at this point due to Brian's homelessness. Plan - Plan Treatment Plan: Name: BRIAN HUBBARD Birthdate: 1980 [id number] Medications: Current Medications Atorvastatin Calcium (Lipitor*) 5 mg PO 1700 [facility] Last Admin: 02/27/17 17:27 Dose: 5 mg Citalopram Hydrobromide (Celexa Tab*) 30 mg PO BEDTIME [facility] Last Admin: 02/27/17 20:29 Dose: 30 mg Clonidine HCl (Catapres Tab*) 0.1 mg PO BID [facility] Last Admin: 02/27/17 20:29 Dose: 0.1 mg Disulfiram (Antabuse Tab*) 500 mg PO DAILY [facility] Last Admin: 02/27/17 08:38 Dose: 500 mg Divalproex Sodium (Depakote Dr Tab(*)) 500 mg PO BID [facility] Last Admin: 02/27/17 20:28 Dose: 500 mg Divalproex Sodium (Depakote Dr Tab(*)) 250 mg PO BID [facility] Last Admin: 02/27/17 20:29 Dose: 250 mg Folic Acid (Folvite Tab*) 1 mg PO DAILY [facility] Last Admin: 02/27/17 08:37 Dose: 1 mg Nicotine (Nicotine Inhaler*) 10 mg INH Q2H PRN PRN Reason: CRAVING Last Admin: 02/27/17 20:28 Dose: 10 mg Nicotine (Nicotine Patch 14 Mg/24 Hr*) 1 patch TRANSDERM DAILY [facility] Last Admin: 02/27/17 08:51 Dose: 1 patch Omeprazole (Prilosec Cap*) 20 mg PO BID [facility] Last Admin: 02/27/17 20:28 Dose: 20 mg Pharmacy Profile Note (Nicotine Patch Removal Note*) 1 note FOLLOW UP 2100 [facility] Last Admin: 02/27/17 20:30 Dose: 1 note Risperidone (Risperdal*) 4 mg PO BEDTIME [facility] Last Admin: 02/27/17 20:29 Dose: 4 mg Thiamine HCl (Vitamin B-1 Tab*) 100 mg PO DAILY [facility] Last Admin: 02/27/17 08:38 Dose: 100 mg
[2017-02-28] MEDS: Thiamine TAB* 100 MG TAB PO SCH (08:30)
[2017-02-28] MEDS: Disulfiram TAB* 250 MG PO SCH (08:30)
[2017-02-28] MEDS: Nicotine Inhaler* 10 MG AMP INH PRN ×4 (08:30→21:26)
[2017-02-28] MEDS: Divalproex DR TAB(*) 500 MG PO SCH ×2 (08:31→21:26)
[2017-02-28] MEDS: cloNIDine TAB* 0.1 MG PO SCH ×2 (08:31→21:28)
[2017-02-28] MEDS: Omeprazole CAP* 20 MG PO SCH ×2 (08:31→21:27)
[2017-02-28] MEDS: Divalproex DR TAB(*) 250 MG PO SCH ×2 (08:31→21:28)
[2017-02-28] MEDS: Folic Acid TAB* 1 MG PO SCH (08:31)
[2017-02-28] MEDS: Nicotine PATCH 14 MG/24 HR* PATCH TRANSDERM SCH (08:32)
--- NOTE | 2017-02-28 08:57 | PN ---
Subjective - Subjective Service Type: [id number] Hosp care 15 min low complexity Subjective: Brian reports doing fine, he denies side effects and is pleased with his regimen. He had no concerns or complaints, and denied any symptoms. He appreciated info about housing planning. Objective - Appearance Appearance: Well Developed/Nourished Hygiene: Normal Grooming: Fairly Well Kept - Behavior Psychomotor Activities: Normal - Attitude and Relatedness Attitude and Relatedness: Superficially Cooperative Eye Contact: Good - Speech Quality: Unpressured Latencies: Normal Quantity: Terse - Mood Patient's Decription of Mood: "Fine" - Affect Observed Affect: Unvariable Affect Consistent with: Euthymia - Thought Process Patient's Thought Process: Coherent, Impoverished Thought Content: No Passive Wish, No Suicidal Planning, No Homicidal Ideation, No Paranoid Ideation - Sensorium Experiencing Hallucinations: No, Sensorium is Clear - Level of Consciousness Level of Consciousness: Alert - Impulse Control Impulse Control: Poor - Insight and Judgement Insight and Judgement: Poor Assessment - Assessment Merits Inpatient Hospitalization: For Ongoing Evaluation, Consolidate Improvements, For Discharge Planning, Pending Safe DC Plan Inpatient DSM-IV Dx: Mood disorder, not otherwise specified. Psychotic disorder not otherwise specified. Rule out Bipolar disorder, Schizoaffective disorder. Alcohol, cocaine, and opioid use disorders. Rule out medication adverse effect Clinical Impression: 36-year-old male with reported history of violence and suicidal behavior, self- mutilating behavior, depressive condition, outpatient psychiatric treatment, psychiatric hospitalization, and incarceration along with significant substance use disorders. He was admitted due to concern over abnormal behavior at residential rehab facility with "walking into patricio" and apparent disinhibition , along with suicidal statements. Brian has stabilized, with little or no current clinical movement. He had an evolving course, with different challenges at different stages; overall he is doing much better. 1. Symptoms and pathology: a- First concern was for suicidal / violent ideation, this prompted his admission and resolved early in his course here. b- Later, psychotic functioning appeared prominent. Both at [facility] and on our observation Brian appeared to have psychotic features: disorganized thought process, ambivlanece (negative symptoms?), oddness, responses to internal stimuli. These symptoms have improved substantially. He is more organized and spontaneous. c- he has been sexually inappropriate - its not clear if the behavior is driven by cognitive/intellectual deficits, or personality factors. d- he has clear cognitive / intellectual limitations. Testing confirmed it. These could be life-long, or sequelae to prior head injury or substance use. e- he additionally may have personality factors (Cluster B) that caused historic self harm, violence, risky and socially inappropriate behavior. 2. Behavior: He has been basically safe on checks, cooperative with routines, is participating in programming, and consistently free of suicidal or violent ideation. He has been repeated;y sexually inappropriate at times, but not harmful; and less so recently. 3. Evaluations: include psychological testing with MMPI - he had an exaggerated profile that was not inconsistent with psychosis, testing also suggested possible hypomanic features and consideration for Bipolar disorder. Cognitive testing showed definite impairment consistent with Mild cognitive impairment or Mild intellectual disability. (see Dr. Marques's testing consultation notes). MRI of Brian's Brain showed no intracranial pathology. 4. Medical. Hospitalist consultation was obtained and has evaluated hypertension, tachycardia, and chest pain - [employer] consultant signed off. 5. Medication management involves continuing Lexapro (Celexa given here) and disulfiram, starting Risperdal for coverage psychotic and mood disorder features ; and adding Depakote for mood features and impulsiveness (level 76 on 02/23 on 750mg BID). 6. Discharge planning. He is psychiatrically clear for rehab or lower level of care. Complicated at this point due to Brian's homelessness. Plan - Plan Treatment Plan: Name: BRIAN HUBBARD Birthdate: 1980 [id number] Continued Medication Management: Start Medication Medications: Current Medications Atorvastatin Calcium (Lipitor*) 5 mg PO 1700 [facility] Last Admin: 02/27/17 17:27 Dose: 5 mg Citalopram Hydrobromide (Celexa Tab*) 30 mg PO BEDTIME [facility] Last Admin: 02/27/17 20:29 Dose: 30 mg Clonidine HCl (Catapres Tab*) 0.1 mg PO BID [facility] Last Admin: 02/28/17 08:31 Dose: 0.1 mg Disulfiram (Antabuse Tab*) 500 mg PO DAILY [facility] Last Admin: 02/28/17 08:30 Dose: 500 mg Divalproex Sodium (Depakote Dr Tab(*)) 500 mg PO BID [facility] Last Admin: 02/28/17 08:31 Dose: 500 mg Divalproex Sodium (Depakote Dr Tab(*)) 250 mg PO BID [facility] Last Admin: 02/28/17 08:31 Dose: 250 mg Folic Acid (Folvite Tab*) 1 mg PO DAILY [facility] Last Admin: 02/28/17 08:31 Dose: 1 mg Nicotine (Nicotine Inhaler*) 10 mg INH Q2H PRN PRN Reason: CRAVING Last Admin: 02/28/17 08:30 Dose: 10 mg Nicotine (Nicotine Patch 14 Mg/24 Hr*) 1 patch TRANSDERM DAILY [facility] Last Admin: 02/28/17 08:32 Dose: 1 patch Omeprazole (Prilosec Cap*) 20 mg PO BID [facility] Last Admin: 02/28/17 08:31 Dose: 20 mg Pharmacy Profile Note (Nicotine Patch Removal Note*) 1 note FOLLOW UP 2100 [facility] Last Admin: 02/27/17 20:30 Dose: 1 note Risperidone (Risperdal*) 4 mg PO BEDTIME [facility] Last Admin: 02/27/17 20:29 Dose: 4 mg Thiamine HCl (Vitamin B-1 Tab*) 100 mg PO DAILY [facility] Last Admin: 02/28/17 08:30 Dose: 100 mg - Discharge Plan Discharge Plan: Outpatient Follow Up
[2017-02-28] MEDS: Atorvastatin* 10 MG TAB PO SCH (16:31)
[2017-02-28] MEDS: Citalopram TAB* 10 MG PO SCH (21:26)
[2017-02-28] MEDS: risperiDONE TAB* 2 MG PO SCH (21:27)
[2017-02-28] MEDS: Nicotine Patch Removal NOTE FOLLOW UP SCH (21:29)
[2017-03-01] MEDS: Divalproex DR TAB(*) 500 MG PO SCH ×2 (09:31→20:35)
[2017-03-01] MEDS: Thiamine TAB* 100 MG TAB PO SCH (09:31)
[2017-03-01] MEDS: Disulfiram TAB* 250 MG PO SCH (09:31)
[2017-03-01] MEDS: Folic Acid TAB* 1 MG PO SCH (09:32)
[2017-03-01] MEDS: Nicotine Inhaler* 10 MG AMP INH PRN ×5 (09:32→20:52)
[2017-03-01] MEDS: Divalproex DR TAB(*) 250 MG PO SCH ×2 (09:32→20:35)
[2017-03-01] MEDS: Omeprazole CAP* 20 MG PO SCH ×2 (09:32→20:30)
[2017-03-01] MEDS: Nicotine PATCH 14 MG/24 HR* PATCH TRANSDERM SCH (09:36)
[2017-03-01] MEDS: cloNIDine TAB* 0.1 MG PO SCH ×2 (09:41→20:31)
--- NOTE | 2017-03-01 11:48 | PN ---
MHU: Group Therapy Note - Service Type Service Type: [id number] Group Psychotherapy - Cognitive Behavioral Group Therapy ( CBT):Patient attended CBT programming this morning and presented with flat affect that did not vary with discussion. Although responsive to direct prompts to respond to questions, patient did not engage in spontaneous conversation.
[2017-03-01] MEDS: Atorvastatin* 10 MG TAB PO SCH (16:40)
[2017-03-01] MEDS: Citalopram TAB* 10 MG PO SCH (20:30)
[2017-03-01] MEDS: risperiDONE TAB* 2 MG PO SCH (20:32)
[2017-03-01] MEDS: Nicotine Patch Removal NOTE FOLLOW UP SCH (20:34)
[2017-03-02] MEDS: Divalproex DR TAB(*) 250 MG PO SCH ×2 (10:26→21:14)
[2017-03-02] MEDS: Omeprazole CAP* 20 MG PO SCH ×2 (10:26→21:12)
[2017-03-02] MEDS: Disulfiram TAB* 250 MG PO SCH (10:26)
[2017-03-02] MEDS: Divalproex DR TAB(*) 500 MG PO SCH ×2 (10:26→21:13)
[2017-03-02] MEDS: Nicotine Inhaler* 10 MG AMP INH PRN ×5 (10:27→23:54)
[2017-03-02] MEDS: Thiamine TAB* 100 MG TAB PO SCH (10:27)
[2017-03-02] MEDS: Folic Acid TAB* 1 MG PO SCH (10:27)
[2017-03-02] MEDS: Nicotine PATCH 14 MG/24 HR* PATCH TRANSDERM SCH (10:28)
[2017-03-02] MEDS: cloNIDine TAB* 0.1 MG PO SCH ×2 (10:30→21:13)
--- NOTE | 2017-03-02 11:55 | PN ---
MHU: Group Therapy Note - Service Type Service Type: [id number] Group Psychotherapy - Cognitive Behavioral Group Therapy ( CBT):Patient attended CBT programming this morning and presented with flat affect that did not vary with discussion. Although responsive to direct prompts to respond to questions, patient did not engage in spontaneous conversation.
--- NOTE | 2017-03-02 11:59 | PN ---
Subjective - Subjective Service Type: [id number] Hosp care 15 min low complexity Subjective: Brian had no concerns, comments, requests or complaints. He denied side effects and reporting doing fine here. I updated him on current ideas with discharge planning, and it was okay with him. Objective - Appearance Appearance: Healthy Appearing Hygiene: Normal Grooming: Well Kept - Behavior Psychomotor Activities: Normal - Attitude and Relatedness Attitude and Relatedness: Superficially Cooperative Eye Contact: Good - Speech Quality: Unpressured Latencies: Normal Quantity: Terse - Mood Patient's Decription of Mood: "Okay" - Affect Observed Affect: Non-labile Affect Consistent with: Euthymia - Thought Process Patient's Thought Process: Impoverished Thought Content: No Passive Wish, No Suicidal Planning, No Homicidal Ideation, No Paranoid Ideation - Sensorium Experiencing Hallucinations: No, Sensorium is Clear - Level of Consciousness Level of Consciousness: Alert - Impulse Control Impulse Control: Poor - Insight and Judgement Insight and Judgement: Poor Assessment - Assessment Merits Inpatient Hospitalization: Consolidate Improvements, For Discharge Planning, Pending Safe DC Plan Inpatient DSM-IV Dx: Mood disorder, not otherwise specified. Psychotic disorder not otherwise specified. Rule out Bipolar disorder, Schizoaffective disorder. Alcohol, cocaine, and opioid use disorders. Rule out medication adverse effect Clinical Impression: 36-year-old male with reported history of violence and suicidal behavior, self- mutilating behavior, depressive condition, outpatient psychiatric treatment, psychiatric hospitalization, and incarceration along with significant substance use disorders. He was admitted due to concern over abnormal behavior at residential rehab facility with "walking into patricio" and apparent disinhibition , along with suicidal statements. Brian has stabilized, with little or no current clinical movement. He had an evolving course, with different challenges at different stages; overall he is doing much better. 1. Symptoms and pathology: a- First concern was for suicidal / violent ideation, this prompted his admission and resolved early in his course here. b- Later, psychotic functioning appeared prominent. Both at [facility] and on our observation Brian appeared to have psychotic features: disorganized thought process, ambivlanece (negative symptoms?), oddness, responses to internal stimuli. These symptoms have improved substantially. He is more organized and spontaneous. c- he has been sexually inappropriate - its not clear if the behavior is driven by cognitive/intellectual deficits, or personality factors. d- he has clear cognitive / intellectual limitations. Testing confirmed it. These could be life-long, or sequelae to prior head injury or substance use. e- he additionally may have personality factors (Cluster B) that caused historic self harm, violence, risky and socially inappropriate behavior. 2. Behavior: He has been basically safe on checks, cooperative with routines, is participating in programming, and consistently free of suicidal or violent ideation. He has been repeated;y sexually inappropriate at times, but not harmful; and less so recently. 3. Evaluations: include psychological testing with MMPI - he had an exaggerated profile that was not inconsistent with psychosis, testing also suggested possible hypomanic features and consideration for Bipolar disorder. Cognitive testing showed definite impairment consistent with Mild cognitive impairment or Mild intellectual disability. (see Dr. Marques's testing consultation notes). MRI of Brian's Brain showed no intracranial pathology. 4. Medical. Hospitalist consultation was obtained and has evaluated hypertension, tachycardia, and chest pain - sales consultant insurance signed off. 5. Medication management involves continuing Lexapro (Celexa given here) and disulfiram, starting Risperdal for coverage psychotic and mood disorder features ; and adding Depakote for mood features and impulsiveness (level 76 on 02/23 on 750mg BID). 6. Discharge planning. He is psychiatrically clear for rehab or lower level of care. Complicated at this point due to Brian's homelessness. Plan - Plan Treatment Plan: Name: BRIAN HUBBARD Birthdate: 1980 [id number] Continued Medication Management: Start Medication Medications: Current Medications Atorvastatin Calcium (Lipitor*) 5 mg PO 1700 [facility] Last Admin: 03/01/17 16:40 Dose: 5 mg Citalopram Hydrobromide (Celexa Tab*) 30 mg PO BEDTIME [facility] Last Admin: 03/01/17 20:30 Dose: 30 mg Clonidine HCl (Catapres Tab*) 0.1 mg PO BID [facility] Last Admin: 03/02/17 10:30 Dose: Not Given Disulfiram (Antabuse Tab*) 500 mg PO DAILY [facility] Last Admin: 03/02/17 10:26 Dose: 500 mg Divalproex Sodium (Depakote Dr Tab(*)) 500 mg PO BID [facility] Last Admin: 03/02/17 10:26 Dose: 500 mg Divalproex Sodium (Depakote Dr Tab(*)) 250 mg PO BID [facility] Last Admin: 03/02/17 10:26 Dose: 250 mg Folic Acid (Folvite Tab*) 1 mg PO DAILY [facility] Last Admin: 03/02/17 10:27 Dose: 1 mg Nicotine (Nicotine Inhaler*) 10 mg INH Q2H PRN PRN Reason: CRAVING Last Admin: 03/02/17 10:27 Dose: 10 mg Nicotine (Nicotine Patch 14 Mg/24 Hr*) 1 patch TRANSDERM DAILY [facility] Last Admin: 03/02/17 10:28 Dose: 1 patch Omeprazole (Prilosec Cap*) 20 mg PO BID [facility] Last Admin: 03/02/17 10:26 Dose: 20 mg Pharmacy Profile Note (Nicotine Patch Removal Note*) 1 note FOLLOW UP 2100 [facility] Last Admin: 03/01/17 20:34 Dose: 1 note Risperidone (Risperdal*) 4 mg PO BEDTIME [facility] Last Admin: 03/01/17 20:32 Dose: 4 mg Thiamine HCl (Vitamin B-1 Tab*) 100 mg PO DAILY [facility] Last Admin: 03/02/17 10:27 Dose: 100 mg - Discharge Plan Discharge Plan: Outpatient Follow Up
[2017-03-02] MEDS: Atorvastatin* 10 MG TAB PO SCH (17:18)
[2017-03-02] MEDS: risperiDONE TAB* 2 MG PO SCH (21:12)
[2017-03-02] MEDS: Citalopram TAB* 10 MG PO SCH (21:12)
[2017-03-02] MEDS: Nicotine Patch Removal NOTE FOLLOW UP SCH (21:16)
[2017-03-03] MEDS: Thiamine TAB* 100 MG TAB PO SCH (10:11)
[2017-03-03] MEDS: Nicotine Inhaler* 10 MG AMP INH PRN ×4 (10:11→22:56)
[2017-03-03] MEDS: Folic Acid TAB* 1 MG PO SCH (10:11)
[2017-03-03] MEDS: Disulfiram TAB* 250 MG PO SCH (10:12)
[2017-03-03] MEDS: Omeprazole CAP* 20 MG PO SCH ×2 (10:12→20:26)
[2017-03-03] MEDS: Divalproex DR TAB(*) 500 MG PO SCH ×2 (10:12→20:26)
[2017-03-03] MEDS: Nicotine PATCH 14 MG/24 HR* PATCH TRANSDERM SCH (10:13)
[2017-03-03] MEDS: cloNIDine TAB* 0.1 MG PO SCH ×2 (10:13→20:26)
[2017-03-03] MEDS: Divalproex DR TAB(*) 250 MG PO SCH ×2 (10:14→20:26)
--- NOTE | 2017-03-03 11:26 | PN ---
MHU: Group Therapy Note - Service Type Service Type: [id number] Group Psychotherapy - Cognitive Behavioral Group Therapy ( CBT):Patient attended CBT programming this morning and presented with flat affect that did not vary with discussion. Although responsive to direct prompts to respond to questions, patient did not engage in spontaneous conversation.
[2017-03-03] MEDS: Atorvastatin* 10 MG TAB PO SCH (16:22)
[2017-03-03] MEDS: Citalopram TAB* 10 MG PO SCH (20:26)
[2017-03-03] MEDS: risperiDONE TAB* 2 MG PO SCH (20:26)
[2017-03-03] MEDS: Nicotine Patch Removal NOTE FOLLOW UP SCH (20:26)
[2017-03-04] MEDS: Nicotine Inhaler* 10 MG AMP INH PRN ×5 (01:40→23:21)
[2017-03-04] MEDS: Folic Acid TAB* 1 MG PO SCH (10:17)
[2017-03-04] MEDS: Divalproex DR TAB(*) 500 MG PO SCH ×2 (10:17→20:42)
[2017-03-04] MEDS: cloNIDine TAB* 0.1 MG PO SCH ×2 (10:17→20:43)
[2017-03-04] MEDS: Divalproex DR TAB(*) 250 MG PO SCH ×2 (10:17→20:42)
[2017-03-04] MEDS: Thiamine TAB* 100 MG TAB PO SCH (10:17)
[2017-03-04] MEDS: Disulfiram TAB* 250 MG PO SCH (10:17)
[2017-03-04] MEDS: Omeprazole CAP* 20 MG PO SCH ×2 (10:17→20:42)
[2017-03-04] MEDS: Nicotine PATCH 14 MG/24 HR* PATCH TRANSDERM SCH (10:19)
[2017-03-04 11:00] VITALS: BP 137/78
[2017-03-04] MEDS: Atorvastatin* 10 MG TAB PO SCH (16:50)
--- NOTE | 2017-03-04 18:41 | PN ---
Subjective - Subjective Service Type: [id number] Hosp care 15 min low complexity Subjective: Brian reports doing alright with stably remitted psychiatric symptoms. Objective - Appearance Appearance: Well Developed/Nourished Dysmorphic Features: No Hygiene: Normal Grooming: Well Kept - Behavior Psychomotor Activities: Normal Exhibits Abnormal Movement: No - Attitude and Relatedness Attitude and Relatedness: Cooperative Eye Contact: Good - Speech Quality: Unpressured Latencies: Normal Quantity: Appropriate - Mood Patient's Decription of Mood: "Doing alright" - Affect Observed Affect: Fair Affect Consistent with: Euthymia - Thought Process Patient's Thought Process: Coherent, Goal Directed Thought Content: No Passive Wish, No Suicidal Planning, No Homicidal Ideation, No Paranoid Ideation - Sensorium Experiencing Hallucinations: No, Sensorium is Clear Type of Hallucinations: Visual: No, Auditory: No, Command: No - Level of Consciousness Level of Consciousness: Alert Orientation: Yes Intact, Yes Orientated to Time, Yes Orientated to Place, Yes Orientated to Person - Impulse Control Impulse Control: Intact - Insight and Judgement Insight and Judgement: Fair - Group Participation Particating in Group Activities: Yes - Medication Management Medication Management Adherence: Yes Assessment - Assessment Merits Inpatient Hospitalization: Consolidate Improvements, For Discharge Planning Inpatient DSM-IV Dx: Mood disorder, not otherwise specified. Psychotic disorder not otherwise specified. Rule out Bipolar disorder, Schizoaffective disorder. Alcohol, cocaine, and opioid use disorders. Rule out medication adverse effect Clinical Impression: Brian is a 36 year-old man admitted to this unit following SI and odd behavior reported and observed at [facility]. He remains mildly disorganized here, but with some clearing of his thought process. He would like to return to [facility] for continued care for his substance use disorder. 17: Return to [facility] is not an option for Brian. His history remains murky, with his inability to recall sufficient history to even guide gathering collateral report at this point. His behavior is non-threatening and even pleasant. His thoughts are organized only on the small scale of attendance to ADLs. He is pleasant and sociable. Main gains appear possible through increase of collateral report as it comes available with clearing of Brian's thought process. 03.04.17 Brian reports stably remitted psychiatric symptoms. He is prepared for discharge Monday to [facility]. Plan - Plan Treatment Plan: Name: BRIAN HUBBARD Birthdate: 1980 [id number] Continue current meds. Monitor MS and safety. Prepare for Monday discharge. Medications: Current Medications Atorvastatin Calcium (Lipitor*) 5 mg PO 1700 [facility] Last Admin: 03/04/17 16:50 Dose: 5 mg Citalopram Hydrobromide (Celexa Tab*) 30 mg PO BEDTIME [facility] Last Admin: 03/03/17 20:26 Dose: 30 mg Clonidine HCl (Catapres Tab*) 0.1 mg PO BID [facility] Last Admin: 03/04/17 10:17 Dose: 0.1 mg Disulfiram (Antabuse Tab*) 500 mg PO DAILY [facility] Last Admin: 03/04/17 10:17 Dose: 500 mg Divalproex Sodium (Depakote Dr Tab(*)) 500 mg PO BID [facility] Last Admin: 03/04/17 10:17 Dose: 500 mg Divalproex Sodium (Depakote Dr Tab(*)) 250 mg PO BID [facility] Last Admin: 03/04/17 10:17 Dose: 250 mg Folic Acid (Folvite Tab*) 1 mg PO DAILY [facility] Last Admin: 03/04/17 10:17 Dose: 1 mg Nicotine (Nicotine Inhaler*) 10 mg INH Q2H PRN PRN Reason: CRAVING Last Admin: 03/04/17 16:52 Dose: 10 mg Nicotine (Nicotine Patch 14 Mg/24 Hr*) 1 patch TRANSDERM DAILY [facility] Last Admin: 03/04/17 10:19 Dose: 1 patch Omeprazole (Prilosec Cap*) 20 mg PO BID [facility] Last Admin: 03/04/17 10:17 Dose: 20 mg Pharmacy Profile Note (Nicotine Patch Removal Note*) 1 note FOLLOW UP 2100 [facility] Last Admin: 03/03/17 20:26 Dose: 1 note Risperidone (Risperdal*) 4 mg PO BEDTIME [facility] Last Admin: 03/03/17 20:26 Dose: 4 mg Thiamine HCl (Vitamin B-1 Tab*) 100 mg PO DAILY [facility] Last Admin: 03/04/17 10:17 Dose: 100 mg - Discharge Plan Discharge Plan: Outpatient Follow Up Outpatient Program: [facility]
[2017-03-04] MEDS: Citalopram TAB* 10 MG PO SCH (20:41)
[2017-03-04] MEDS: risperiDONE TAB* 2 MG PO SCH (20:42)
[2017-03-04] MEDS: Nicotine Patch Removal NOTE FOLLOW UP SCH (21:35)
[2017-03-05] MEDS: Disulfiram TAB* 250 MG PO SCH (10:27)
[2017-03-05] MEDS: Folic Acid TAB* 1 MG PO SCH (10:27)
[2017-03-05] MEDS: Divalproex DR TAB(*) 500 MG PO SCH ×2 (10:27→20:36)
[2017-03-05] MEDS: Omeprazole CAP* 20 MG PO SCH ×2 (10:27→20:37)
[2017-03-05] MEDS: Divalproex DR TAB(*) 250 MG PO SCH ×2 (10:27→20:36)
[2017-03-05] MEDS: Thiamine TAB* 100 MG TAB PO SCH (10:27)
[2017-03-05] MEDS: Nicotine PATCH 14 MG/24 HR* PATCH TRANSDERM SCH (10:39)
[2017-03-05] MEDS: cloNIDine TAB* 0.1 MG PO SCH ×2 (10:39→20:37)
[2017-03-05] MEDS: Nicotine Inhaler* 10 MG AMP INH PRN ×5 (10:45→23:08)
[2017-03-05] MEDS: Atorvastatin* 10 MG TAB PO SCH (16:03)
--- NOTE | 2017-03-05 16:48 | PN ---
Subjective - Subjective Service Type: 06449 Hosp care 15 min low complexity Subjective: Brian reports feeling safe and ready for discharge to the [facility] tomorrow. Objective - Appearance Appearance: Well Developed/Nourished Dysmorphic Features: No Hygiene: Normal Grooming: Fairly Well Kept - Behavior Psychomotor Activities: Normal Exhibits Abnormal Movement: No - Attitude and Relatedness Attitude and Relatedness: Cooperative Eye Contact: Good - Speech Quality: Unpressured Latencies: Normal Quantity: Appropriate - Mood Patient's Decription of Mood: "Good" - Affect Observed Affect: Fair Affect Consistent with: Euthymia - Thought Process Patient's Thought Process: Coherent, Goal Directed Thought Content: No Passive Wish, No Suicidal Planning, No Homicidal Ideation, No Paranoid Ideation - Sensorium Experiencing Hallucinations: No, Sensorium is Clear Type of Hallucinations: Visual: No, Auditory: No, Command: No - Level of Consciousness Level of Consciousness: Alert Orientation: Yes Intact, Yes Orientated to Time, Yes Orientated to Place, Yes Orientated to Person - Impulse Control Impulse Control: Intact - Insight and Judgement Insight and Judgement: Fair - Group Participation Particating in Group Activities: No - Medication Management Medication Management Adherence: Yes Assessment - Assessment Merits Inpatient Hospitalization: Consolidate Improvements, For Discharge Planning Inpatient DSM-IV Dx: Mood disorder, not otherwise specified. Psychotic disorder not otherwise specified. Rule out Bipolar disorder, Schizoaffective disorder. Alcohol, cocaine, and opioid use disorders. Rule out medication adverse effect Clinical Impression: Brian is a 36 year-old man admitted to this unit following SI and odd behavior reported and observed at [facility]. He remains mildly disorganized here, but with some clearing of his thought process. He would like to return to [facility] for continued care for his substance use disorder. 17: Return to [facility] is not an option for Brian. His history remains murky, with his inability to recall sufficient history to even guide gathering collateral report at this point. His behavior is non-threatening and even pleasant. His thoughts are organized only on the small scale of attendance to ADLs. He is pleasant and sociable. Main gains appear possible through increase of collateral report as it comes available with clearing of Brian's thought process. 03.04.17 Brian reports stably remitted psychiatric symptoms. He is prepared for discharge Monday to [facility]. 03.05.17 Plan for discharge tomorrow to [facility]. Plan - Plan Treatment Plan: Name: BRIAN HUBBARD Birthdate: 1980 [id number] Continue current meds. Monitor MS and safety. Prepare for Monday discharge. Medications: Current Medications Atorvastatin Calcium (Lipitor*) 5 mg PO 1700 [facility] Last Admin: 03/05/17 16:03 Dose: 5 mg Citalopram Hydrobromide (Celexa Tab*) 30 mg PO BEDTIME [facility] Last Admin: 03/04/17 20:41 Dose: 30 mg Clonidine HCl (Catapres Tab*) 0.1 mg PO BID [facility] Last Admin: 03/05/17 10:39 Dose: 0.1 mg Disulfiram (Antabuse Tab*) 500 mg PO DAILY [facility] Last Admin: 03/05/17 10:27 Dose: 500 mg Divalproex Sodium (Depakote Dr Tab(*)) 500 mg PO BID [facility] Last Admin: 03/05/17 10:27 Dose: 500 mg Divalproex Sodium (Depakote Dr Tab(*)) 250 mg PO BID [facility] Last Admin: 03/05/17 10:27 Dose: 250 mg Folic Acid (Folvite Tab*) 1 mg PO DAILY [facility] Last Admin: 03/05/17 10:27 Dose: 1 mg Nicotine (Nicotine Inhaler*) 10 mg INH Q2H PRN PRN Reason: CRAVING Last Admin: 03/05/17 16:03 Dose: 10 mg Nicotine (Nicotine Patch 14 Mg/24 Hr*) 1 patch TRANSDERM DAILY [facility] Last Admin: 03/05/17 10:39 Dose: 1 patch Omeprazole (Prilosec Cap*) 20 mg PO BID [facility] Last Admin: 03/05/17 10:27 Dose: 20 mg Pharmacy Profile Note (Nicotine Patch Removal Note*) 1 note FOLLOW UP 2100 [facility] Last Admin: 03/04/17 21:35 Dose: 1 note Risperidone (Risperdal*) 4 mg PO BEDTIME [facility] Last Admin: 03/04/17 20:42 Dose: 4 mg Thiamine HCl (Vitamin B-1 Tab*) 100 mg PO DAILY [facility] Last Admin: 03/05/17 10:27 Dose: 100 mg - Discharge Plan Discharge Plan: Outpatient Follow Up
[2017-03-05] MEDS: Citalopram TAB* 10 MG PO SCH (20:36)
[2017-03-05] MEDS: risperiDONE TAB* 2 MG PO SCH (20:37)
[2017-03-05] MEDS: Nicotine Patch Removal NOTE FOLLOW UP SCH (21:08)
[2017-03-06] MEDS: Nicotine Inhaler* 10 MG AMP INH PRN ×2 (01:05→10:29)
--- NOTE | 2017-03-06 08:52 | DS ---
Subjective - Subjective Service Types: 69036 [facility] Day Mgmt simple under 30 min Discharge Date: 03/06/17 Subjective: Jayy reports feeling safe and ready for discharge today to the [facility] with the failure of multiple other placement options that had been explored energetically by Ms Blunt. He denies any psychotic or mood symptoms, and denies any dangerous intent or plan. Objective - Appearance Appearance: Well Developed/Nourished Dysmorphic Features: No Hygiene: Normal Grooming: Fairly Well Kept - Behavior Psychomotor Activities: Normal Exhibits Abnormal Movement: No - Attitude and Relatedness Attitude and Relatedness: Cooperative Eye Contact: Good - Speech Quality: Unpressured Latencies: Normal Quantity: Appropriate - Mood Patient's Decription of Mood: "Good" - Affect Observed Affect: Good Affect Consistent with: Euthymia - Thought Process Patient's Thought Process: Coherent, Goal Directed Thought Content: No Passive Wish, No Suicidal Planning, No Homicidal Ideation, No Paranoid Ideation - Sensorium Experiencing Hallucinations: No, Sensorium is Clear Type of Hallucinations: Visual: No, Auditory: No, Command: No - Level of Consciousness Level of Consciousness: Alert Orientation: Yes Intact, Yes Orientated to Time, Yes Orientated to Place, Yes Orientated to Person - Impulse Control Impulse Control: Intact - Insight and Judgement Insight and Judgement: Fair - Group Participation Particating in Group Activities: Yes Group Participation Comments: but few - Medication Management Medication Management Adherence: Yes Treatment Course & Assessment Clinical Course & Impression: Jayy is cleared for discharge today. For a summary of his presentation and care here, please see Dr Coker's progress note from 03/02/17. In brief: Jayy is a 36-year-old man with a history of violence and suicidality who was admitted from the inpatient [facility] program for odd behavior such as walking into patricio, overall poorly regulated behavior, and suicidal statements. His SI resolved early in this admission. His psychotic symptoms of disorganized thought process, ambivalence perhaps reflective of negative symptoms, and response to internal stimuli have improved such that his current presentation remains odd with a distant or distracted style of interaction. He was sexually inappropriate during the course of this admission, but there has not been recurrence of this behavior in the past week. Testing confirmed cognitive impairment, perhaps life-long, unclear if caused by head injury or substance use. There remains the possibility that a personality disorder plays a role in his history of self-harm, violence and risky and inappropriate behaviors. He has been safe on all checks, cooperative with unit routines, attending groups , and consistently free of suicidal or violent ideation. His sexual inpropriety was not predatory, but more in the vein of poor respect of boundaries, and none has been reported in recent days. Psychological testing included an MMPI with scale elevations consistent with psychosis and possible hypomanic features, and cognitive testing finding mild cognitive impairment or mild intellectual disability. MRI was read as showing no abnormalities. For full details please see Dr Marques's reports. Cardiac concerns regarding blood pressure and tachycardia were evaluated by a hospitalist during this admission. No indication was found for cardiac or anticoagulant medication, and he has been stable without complaint of chest pain , tachycardia or other signs or symptoms of medical concern, cardiac or otherwise. He remains on Celexa, Antabuse, Risperdal and Depakote (level of 76 on 02/23 at 750 mg bid), with normal platelet and transaminase levels. He will discharge to the [facility] now that multiple preferable housing options have been pursued extensively but without success by his corporate meeting planner Ms Blunt. He will have follow up psychiatric care at [facility]. He will receive outpatient substance abuse treatment at [facility]. He will have case management for the next 30 days. He has been referred to [facility]. Jayy is assessed as at no acutely increased risk of harm to self or others and capable of adequate self-care, in the context of services in place at discharge , to avoid harm. His history of mental illness with suicidality, violence and substance abuse places him at increased chronic risk of harm to self and others that cannot be further modified in this acute treatment setting. He can reduce these chronic but not imminent risks by adherence with aftercare. Merits Inpatient Hospitalization: No Clear for Discharge: Adequate Clinical Respons, Acceptable Safety Profile, Low Utility of Inpt Care Inpatient DSM-IV Dx: Mood disorder, not otherwise specified. Psychotic disorder not otherwise specified. Rule out Bipolar disorder, Schizoaffective disorder. Alcohol, cocaine, and opioid use disorders. Rule out medication adverse effect - Clayton I Mental Illness: Mood disorder NOS. Psychotic disorder NOS. Rule out bipolar disorder, schizoaffective disorder. Alcohol, cocaine and opioid use disorders - Clayton II MR and Personality Disorder: Deferred - Clayton III Medical Illness: Chronic back pain, treatment for hypertension - Clayton IV Stressors: homelessness with limited social supports Family: unable to reach family, whom it seems he has alienated by the consequences of his substance abuse per Ms Blunt Primary Support Group: only professional caretakers - Clayton V VCM-[id number]-Hcety: 60 Estimate of Highest-Past Year: unknown Discharge Planning - Discharge Planning Discharge Plan: Outpatient Follow Up Outpatient Program: [facility] - and outpatient [facility] Recommendations for Continuing Care: Medication Management, Psychotherapy, Substance Abuse Counseling Medications: Atorvastatin Calcium (Lipitor*) 5 mg PO 1700 [facility] Last Admin: 03/05/17 16:03 Dose: 5 mg Citalopram Hydrobromide (Celexa Tab*) 30 mg PO BEDTIME [facility] Last Admin: 03/05/17 20:36 Dose: 30 mg will be replaced with Escitalopram 15 mg po bedtime scheduled Clonidine HCl (Catapres Tab*) 0.1 mg PO BID [facility] Last Admin: 03/05/17 20:37 Dose: 0.1 mg Disulfiram (Antabuse Tab*) 500 mg PO DAILY [facility] Last Admin: 03/05/17 10:27 Dose: 500 mg Divalproex Sodium (Depakote Dr Tab(*)) 500 mg PO BID [facility] Last Admin: 03/05/17 20:36 Dose: 500 mg Divalproex Sodium (Depakote Dr Tab(*)) 250 mg PO BID [facility] Last Admin: 03/05/17 20:36 Dose: 250 mg Nicotine (Nicotine Patch 14 Mg/24 Hr*) 1 patch TRANSDERM DAILY [facility] Last Admin: 03/05/17 10:39 Dose: 1 patch Omeprazole (Prilosec Cap*) 20 mg PO BID [facility] Last Admin: 03/05/17 20:37 Dose: 20 mg Risperidone (Risperdal*) 4 mg PO BEDTIME [facility] Last Admin: 03/05/17 20:37 Dose: 4 mg MVI one tab daily Discharge Planning: Prescriptions provided for discharge [x] Yes [] No Follow up care details as per social work arrangements. Patient response to discharge plan: [x] eager for discharge [x] agreeable with discharge plan [] ambivalent about discharge [] disagrees with discharge today
[2017-03-06] MEDS: Disulfiram TAB* 250 MG PO SCH (09:17)
[2017-03-06] MEDS: Nicotine PATCH 14 MG/24 HR* PATCH TRANSDERM SCH (09:17)
[2017-03-06] MEDS: Divalproex DR TAB(*) 500 MG PO SCH (09:18)
[2017-03-06] MEDS: Omeprazole CAP* 20 MG PO SCH (09:18)
[2017-03-06] MEDS: Folic Acid TAB* 1 MG PO SCH (09:18)
[2017-03-06] MEDS: Thiamine TAB* 100 MG TAB PO SCH (09:18)
[2017-03-06] MEDS: Divalproex DR TAB(*) 250 MG PO SCH (09:18)
[2017-03-06] MEDS: cloNIDine TAB* 0.1 MG PO SCH (09:33)
--- NOTE | 2017-03-06 14:04 | PN ---
[facility]: Group Therapy Note - Service Type Service Type: 02351 Group Psychotherapy - Cognitive Behavioral Group Therapy ( CBT):Patient attended CBT programming this morning and presented with flat affect that did not vary with discussion. Although responsive to direct prompts to respond to questions, patient did not engage in spontaneous conversation.
== END 2017-03-06 12:25 | DRG 753 ==
LOC: ED 12:51 → BSU 20:56
PROVIDERS: ADMIT Psychiatry & Neurology Psychiatry; ATTEND Psychiatry & Neurology Psychiatry
PROC: GZHZZZZ Group Psychotherapy (ICD-10-PCS; principal; 2017-02-08)
PROC: 3E0234Z Introduction of Serum, Toxoid and Vaccine into Muscle, Percutaneous Approach (ICD-10-PCS; 2017-02-12)
DX: F31.9 Bipolar disorder, unspecified (principal); F25.9 Schizoaffective disorder, unspecified; I10 Essential (primary) hypertension; F23 Brief psychotic disorder; Z72.89 Other problems related to lifestyle; F14.90 Cocaine use, unspecified, uncomplicated; F11.90 Opioid use, unspecified, uncomplicated; G31.84 Mild cognitive impairment of uncertain or unknown etiology; T50.905A Adverse effect of unspecified drugs, medicaments and biological substances, initial encounter; G89.29 Other chronic pain; M54.9 Dorsalgia, unspecified; Z59.0 Homelessness; Z81.8 Family history of other mental and behavioral disorders; Z56.0 Unemployment, unspecified; F32.9 Major depressive disorder, single episode, unspecified; Z82.49 Family history of ischemic heart disease and other diseases of the circulatory system; F17.210 Nicotine dependence, cigarettes, uncomplicated; R07.9 Chest pain, unspecified; R00.0 Tachycardia, unspecified; R41.82 Altered mental status, unspecified; D72.829 Elevated white blood cell count, unspecified; Z23 Encounter for immunization
CPT/HCPCS: 36415; 70551; 80048; 80053; 80076; 80164; 80307; 80320; 80329; 81003; 81015; 82550; 84443; 84484; 85025; 85610; 87040; 87086; 90686; 90853; 93005; 99222; 99231; 99232; 99238; 99406; A9270-GY; G0480